=== PATIENT | female | born 1940 | race Caucasian/White ===

== ENCOUNTER → 2018-08-30 | Outpatient (CLI) | payer MEDICARE ==
[~2018-08-30] MED LIST: ACET325 PO; AMIODARONE HCL100 MG PO; AMLO10 PO; AMOCLA875 PO; ATOR80 PO; Adult Low Dose81 MG PO; BENZ100A PO; CEFP200 PO; CHOL10002 PO; CITA20 PO; DIAZ5 PO; DOCU100 PO; FERR325 PO; GABA300 PO; GLIP5ER PO; HYDRA25 PO; LEVSOD137 PO; LEVSOD75 PO; LOSHYD100 PO; METANX CAPSULE1 EACH PO; METO50ER PO; MULTI VITAMIN1 EACH PO; ONDA4 PO; OSTERA TABLET1 EACH PO; OXYC5 PO; PANT20 PO; PANT40 PO; POTA10T PO; PROP10 PO; SUCR1 PO; TORSE20 PO; WARF1 PO; WARF2 PO; WARF5 PO
== END ==
LOC: LAB SHORT 07:52 → PLD 07:52
DX: M79.89 Other specified soft tissue disorders (principal); M20.42 Other hammer toe(s) (acquired), left foot; E11.621 Type 2 diabetes mellitus with foot ulcer; L97.529 Non-pressure chronic ulcer of other part of left foot with unspecified severity
CPT/HCPCS: 88305; 88311

== ENCOUNTER 2018-08-31 19:28 | Emergency (ER) | payer MEDICARE ==
[~2018-08-31] VITALS: Ht 170.2 cm; Wt 65.8 kg
[~2018-08-31 19:28] MED LIST changes: -SUCR1 PO
[2018-08-31 20:42] LABS: BASOPHILS ABSOLUTE AUTO 0.08 K/mm3 (0.00-0.23); BASOPHILS PERCENT AUTO 1 % (0-2); EOSINOPHILS ABSOLUTE AUTO 0.49 K/mm3 (0.00-0.68); EOSINOPHILS PERCENT AUTO 5 % (0-6); Hematocrit 35.7 % (33.0-51.0); Hemoglobin 10.8 g/dL (11.5-16.0); IMMATURE GRAN ABSOLUTE AUTO 0.11 K/mm3 (0.00-0.10); IMMATURE GRAN PERCENT AUTO 1 % (0-1); LYMPHOCYTES PERCENT AUTO 14 % (21-46); MONOCYTES ABSOLUTE AUTO 1.25 K/mm3 (0.16-1.47); MONOCYTES PERCENT AUTO 12 % (4-13); Mean Corpuscular HGB 28.7 pg (26.0-34.0); Mean Corpuscular HGB Conc 30.3 g/dL (31.5-36.5); Mean Corpuscular Volume 95 fL (80-100); Mean Platelet Volume 10.1 fL (9.1-12.4); NEUTROPHILS ABSOLUTE AUTO 6.84 K/mm3 (1.96-9.15); NEUTROPHILS PERCENT AUTO 67 % (41-73); NRBC ABSOLUTE 0.02 K/mm3 (0.00-0.02); NRBC Auto 0.2 /100 WBC (0.0-0.2); Platelet Count 258 K/mm3 (150-400); RDW Coefficient Variation 17.4 % (11.7-14.2); RDW Standard Deviation 58.9 fL (35.1-46.3); Red Blood Cell Count 3.76 M/mm3 (3.80-5.20); White Blood Cell Count 10.17 K/mm3 (4.00-11.30)
[2018-08-31 21:05] LABS: Alanine Aminotransfer (ALT/SGP 25 U/L (12-78); Albumin, Blood 3.3 g/dL (3.4-5.0); Albumin/Globulin Ratio 0.8 (0.8-1.8); Alk Phos 143 U/L (50-136); Anion Gap 9 mmol/L (6-16); Aspartate Aminotrans (AST/SGOT 25 U/L (12-37); Bilirubin, Total 0.4 mg/dL (0.1-1.0); Blood Urea Nitrogen 53 mg/dL (8-24); Bun/Creatinine Ratio 17.8 (12.0-20.0); CO2, Blood 25 mmol/L (21-32); Calcium, Blood 8.4 mg/dL (8.5-10.1); Chloride, Blood 105 mmol/L (98-108); Creatinine, Blood 2.98 mg/dL (0.40-1.00); Globulin, Blood 4.4 g/dL (2.2-4.0); Glomerular Filtration Rate 16 (60-); Glucose, Blood 85 mg/dL (70-99); Potassium, Blood 4.2 mmol/L (3.5-5.5); Sodium, Blood 139 mmol/L (136-145); Total Protein, Blood 7.7 g/dL (6.4-8.2); Troponin I <0.015 ng/mL (0.000-0.040)
[2018-08-31] MEDS ORDERED: SUCR1 PO (22:12)
== END 2018-08-31 22:18 | disposition home or self-care (01) ==
LOC: ER 19:28
PROVIDERS: Physician Assistant
DX: K21.9 Gastro-esophageal reflux disease without esophagitis (principal); Z88.5 Allergy status to narcotic agent; Z88.8 Allergy status to other drugs, medicaments and biological substances; Z88.1 Allergy status to other antibiotic agents; Z79.899 Other long term (current) drug therapy; Z79.01 Long term (current) use of anticoagulants; Z79.82 Long term (current) use of aspirin; I48.91 Unspecified atrial fibrillation; E11.22 Type 2 diabetes mellitus with diabetic chronic kidney disease; N18.9 Chronic kidney disease, unspecified; E03.9 Hypothyroidism, unspecified; E78.5 Hyperlipidemia, unspecified; I50.9 Heart failure, unspecified
CPT/HCPCS: 36415; 71046; 80053; 83880; 84484; 85025; 93005; 93010; 96374; 99284-25; C9113

== ENCOUNTER → 2019-02-07 | Outpatient (CLI) | payer MEDICARE ==
[~2019-02-07] MED LIST changes: +SUCR1 PO
== END | disposition home or self-care (01) ==
LOC: LAB SHORT 12:02 → LAB 12:02
DX: M67.40 Ganglion, unspecified site (principal)
CPT/HCPCS: 87070; 87075; 87205

== ENCOUNTER → 2019-02-16 | Outpatient (CLI) | payer MEDICARE | LOC: PLD 07:36 → LAB SHORT 07:36 | DX: L57.0 Actinic keratosis (principal); L30.9 Dermatitis, unspecified; D04.5 Carcinoma in situ of skin of trunk; R21 Rash and other nonspecific skin eruption | CPT/HCPCS: 88312 ==

== ENCOUNTER → 2019-02-21 | Outpatient (CLI) | payer MEDICARE | END | disposition home or self-care (01) | LOC: LAB SHORT 12:40 → LAB 12:40 | DX: E11.42 Type 2 diabetes mellitus with diabetic polyneuropathy (principal); M67.40 Ganglion, unspecified site | CPT/HCPCS: 87070; 87075; 87205 ==

== ENCOUNTER → 2019-03-14 | Outpatient (CLI) | payer MEDICARE | END | disposition home or self-care (01) | LOC: PLD 08:27 → LAB SHORT 08:27 | DX: M67.472 Ganglion, left ankle and foot (principal) | CPT/HCPCS: 88304 ==

== ENCOUNTER 2020-04-27 10:41 | Inpatient (IN) | payer MEDICARE ==
[~2020-04-27] VITALS: Ht 165.1 cm; Wt 67.0 kg
[~2020-04-27 10:41] MED LIST changes: +ASPIRIN; -Adult Low Dose81 MG PO; -FERR325 PO; +Ferrous Sulfate; +LEVSOD150 PO
[2020-04-27 11:33] LABS: BASOPHILS ABSOLUTE AUTO 0.05 K/mm3 (0.00-0.23); BASOPHILS PERCENT AUTO 1 % (0-2); EOSINOPHILS PERCENT AUTO 3 % (0-6); Hematocrit 28.7 % (33.0-51.0); Hemoglobin 8.5 g/dL (11.5-16.0); IMMATURE GRAN ABSOLUTE AUTO 0.16 K/mm3 (0.00-0.10); IMMATURE GRAN PERCENT AUTO 2 % (0-1); LYMPHOCYTES ABSOLUTE AUTO 1.06 K/mm3 (0.84-5.20); LYMPHOCYTES PERCENT AUTO 10 % (21-46); MONOCYTES ABSOLUTE AUTO 1.08 K/mm3 (0.16-1.47); MONOCYTES PERCENT AUTO 10 % (4-13); Mean Corpuscular HGB 27.9 pg (26.0-34.0); Mean Corpuscular HGB Conc 29.6 g/dL (31.5-36.5); Mean Corpuscular Volume 94 fL (80-100); Mean Platelet Volume 9.8 fL (9.1-12.4); NEUTROPHILS ABSOLUTE AUTO 7.82 K/mm3 (1.96-9.15); NEUTROPHILS PERCENT AUTO 75 % (41-73); Platelet Count 405 K/mm3 (150-400); RDW Coefficient Variation 15.9 % (11.7-14.2); RDW Standard Deviation 56.1 fL (35.1-46.3); Red Blood Cell Count 3.05 M/mm3 (3.80-5.20); White Blood Cell Count 10.47 K/mm3 (4.00-11.30)
[2020-04-27 11:55] LABS: Alanine Aminotransfer (ALT/SGP 25 U/L (12-78); Albumin, Blood 2.7 g/dL (3.4-5.0); Albumin/Globulin Ratio 0.6 (0.8-1.8); Alk Phos 103 U/L (50-136); Anion Gap 11 mmol/L (6-16); Aspartate Aminotrans (AST/SGOT 21 U/L (12-37); Bilirubin, Total 0.4 mg/dL (0.1-1.0); Blood Urea Nitrogen 48 mg/dL (8-24); Bun/Creatinine Ratio 23.9 (12.0-20.0); CO2, Blood 22 mmol/L (21-32); Calcium, Blood 9.3 mg/dL (8.5-10.1); Chloride, Blood 108 mmol/L (98-108); Creatinine, Blood 2.01 mg/dL (0.40-1.00); Globulin, Blood 4.7 g/dL (2.2-4.0); Glomerular Filtration Rate 25 (60-); Glucose, Blood 304 mg/dL (70-99); Potassium, Blood 4.9 mmol/L (3.5-5.5); Sodium, Blood 141 mmol/L (136-145); Total Protein, Blood 7.4 g/dL (6.4-8.2); Troponin I <0.015 ng/mL (0.000-0.040)
[2020-04-27 13:35] LABS: Magnesium, Blood 2.2 mg/dL (1.6-2.4); Thyroid Stimulating Hormone 0.134 uIU/mL (0.360-4.800)
[2020-04-27 14:51] LABS: International Normalized Ratio 2.46
--- NOTE | 2020-04-27 19:30 | NUR ---
REPORT RECEIVED FROM MURALI SPAULDING, ASSUMED CARE OF PT. PT SITTING UP AT BEDSIDE, NO ACUTE DISTRESS. AT BEDSIDE
[2020-04-27] MEDS ORDERED: TORS10 PO (19:57)
[2020-04-27] MEDS ORDERED: GABA300 PO (20:22)
[2020-04-27] MEDS ORDERED: PROCRIT40000 UNIT INJ (20:23)
[2020-04-27] MEDS ORDERED: ALBU90OI6 INH (20:24)
[2020-04-27] MEDS ORDERED: MELATONIN5 M1 (20:25)
[2020-04-27] MEDS ORDERED: DIPH25 PO (20:26)
[2020-04-27] MEDS ORDERED: Aspir 8181 MG PO (20:29)
[2020-04-27] MEDS ORDERED: FERSU300 PO (20:30)
--- NOTE | 2020-04-28 06:02 | NUR ---
SUMMARY PT SLEPT THROUGH MOST OF SHIFT. DENIED ANY CHEST PAIN, DENIED ANY DIFFICULTY BREATHING. O2 @ 2LPM VIA N/C DURING NIGHT. STAND BY ASSIST TO BSC, VOIDING CLEAR YELLOW URINE. WILL CONTINUE TO MONITOR
[2020-04-28 08:57] LABS: Hematocrit 26.7 % (33.0-51.0); Hemoglobin 8.1 g/dL (11.5-16.0); Mean Corpuscular HGB 27.8 pg (26.0-34.0); Mean Corpuscular HGB Conc 30.3 g/dL (31.5-36.5); Mean Corpuscular Volume 92 fL (80-100); Platelet Count 389 K/mm3 (150-400); RDW Coefficient Variation 15.9 % (11.7-14.2); RDW Standard Deviation 53.8 fL (35.1-46.3); Red Blood Cell Count 2.91 M/mm3 (3.80-5.20); White Blood Cell Count 10.04 K/mm3 (4.00-11.30)
[2020-04-28 09:11] LABS: International Normalized Ratio 2.38; Prothrombin Time Results 24.2 Sec (9.7-11.5)
[2020-04-28 09:26] LABS: Percent Saturation 15.9 % (15.0-50.0)
[2020-04-28 10:22] LABS: Thyroid Stimulating Hormone 0.105 uIU/mL (0.360-4.800)
[2020-04-28 10:44] LABS: Bun/Creatinine Ratio 23.4 (12.0-20.0); Calcium, Blood 8.6 mg/dL (8.5-10.1); Creatinine, Blood 1.92 mg/dL (0.40-1.00); Potassium, Blood 4.6 mmol/L (3.5-5.5); Troponin I 0.019 ng/mL (0.000-0.040)
--- NOTE | 2020-04-28 16:51 | NUR ---
PT SUMMARY: PT ALERT AND ORIENTED AT BASELINE, VITALS HRR AFIB 90-100'S, BP SYSTOLIC 120'S, SATS ABOVE 95% ON RA, TEMP 99.2 THE HIGHEST. DENIES CHES PAIN/PRESSURE. PT WORKED WITH PT TODAY WAS ABLE TO AMBULATE VIA WALKER OUTSIDE THE ROOM AND BACK PT STARTED FEELING WEAK AND SOB. NO OTHER ISSUES ENCOUNTERED FOR THE SHIFT, WAS AT BEDSIDE MOST OF THE SHIFT. STATUS CHANGED TO MEDICAL WITH TELE. REPORT GIVEN TO MIGUEL SPAULDING PT TRANSFERRED TO RM 211 VIA WHEELCHAIR ACCOMPANIED BY TEST DATA DEVELOPER. ALL BELONGINGS SENT WITH PT.
--- NOTE | 2020-04-28 17:05 | NUR ---
PT TRANSFERED TO UNIT AT APROX 1706 FROM U[address] TELE IN PLACE-PER TELE MONITOR PT W/ACCELERATED JUNCTIONAL W/ESCAPE BEAT. PT DENIES CP. STATES THAT SHE IS "FEELING STRONGER" EDUCATED PT ON THE NEED TO CALL FOR ASSISTANCE WITH ALL ACTIVITY, PT VERBALIZED UNDERSTANDING.
--- NOTE | 2020-04-29 05:02 | NUR ---
SHIFT SUMMARY PT RESTING WELL THIS NOC SHIFT. AAOX4/ANXIOUS. PT DENIES DISCOMFORT/NAUSEA THIS SHIFT. PT UP SBA TO RESTROOM. GOOD PO INTAKE + OUTPUT. CHEMBG AC+HS, NO COVERAGE FOR HS READING OF 173. TELEMETRY READING A-FLUTTER 90s TO 100s T/O NIGHT. COUMADIN PER PHARMACY. VALIUM GIVEN TO DECREASE ANXIETY + ASSISTED WITH REST. AT BEDSIDE T/O NIGHT, LOVING + ATTENTIVE. PT CURRENTLY RESTING IN BED WITH CALL LIGHT IN REACH.
[2020-04-29 07:32] LABS: International Normalized Ratio 2.64; Prothrombin Time Results 26.7 Sec (9.7-11.5)
[2020-04-29] MEDS ORDERED: AZIT500 PO (11:42)
[2020-04-29] MEDS ORDERED: METO25 PO (11:42)
[2020-04-29] MEDS ORDERED: CEFU500T30 PO (11:43)
--- NOTE | 2020-04-29 12:33 | NUR ---
DISCHARGE PT DISCHARGED HOME FROM UNIT AT 1200. PT AND GIVEN WRITTEN AND VERBAL DC INSTUCTIONS AND BOTH VERBALIZED UNDERSTANDING OF THESE INSTRUCTIONS. NEW RX'S CALLED TO [facility]-PT INFORMED. IV REMOVED, WHEELCHAIR TO CAR
== END 2020-04-29 12:14 | disposition home or self-care (01) | DRG 308 ==
LOC: ER 10:41 → SURS 10:42 → ER 10:42 → PCU 10:42 → SURS 04-28 17:01 → PCU 04-29 07:16 → SURS 04-29 07:16
PROVIDERS: Emergency Medicine; Internal Medicine; ADMIT Internal Medicine
DX: I48.0 Paroxysmal atrial fibrillation (principal); J18.9 Pneumonia, unspecified organism; N18.4 Chronic kidney disease, stage 4 (severe); I50.32 Chronic diastolic (congestive) heart failure; E03.2 Hypothyroidism due to medicaments and other exogenous substances; D63.8 Anemia in other chronic diseases classified elsewhere; F41.9 Anxiety disorder, unspecified; Z20.828 Contact with and (suspected) exposure to other viral communicable diseases; E11.22 Type 2 diabetes mellitus with diabetic chronic kidney disease; Z99.81 Dependence on supplemental oxygen; Z95.2 Presence of prosthetic heart valve; K21.9 Gastro-esophageal reflux disease without esophagitis; E78.5 Hyperlipidemia, unspecified; Z95.1 Presence of aortocoronary bypass graft; E11.40 Type 2 diabetes mellitus with diabetic neuropathy, unspecified; I25.10 Atherosclerotic heart disease of native coronary artery without angina pectoris; I27.20 Pulmonary hypertension, unspecified
CPT/HCPCS: 36415; 71045; 80048; 80053; 82607; 82728; 82746; 82947; 83540; 83550; 83735; 83880; 84145; 84439; 84443; 84484; 85025; 85027; 85379; 85610; 93005; 93010; 97110; 97162; 99285-25; A9270; A9270-GY; G0378; J0696; J7040

== ENCOUNTER 2020-05-25 11:37 | Inpatient (IN) | payer MEDICARE ==
[~2020-05-25] VITALS: Ht 165.1 cm; Wt 65.8 kg
[~2020-05-25 11:37] MED LIST changes: -Amiodarone HCl200 MG PO; -COMBIVENT RESPIM4 G1 INH; -ESCI10 PO; -NEURONTIN300 MG PO; -SYNTHROID150 MC1 PO; -WARF3 PO
[2020-05-25 12:31] LABS: BASOPHILS ABSOLUTE AUTO 0.13 K/mm3 (0.00-0.23); BASOPHILS PERCENT AUTO 1 % (0-2); EOSINOPHILS ABSOLUTE AUTO 1.27 K/mm3 (0.00-0.68); EOSINOPHILS PERCENT AUTO 9 % (0-6); Hematocrit 30.7 % (33.0-51.0); Hemoglobin 8.8 g/dL (11.5-16.0); IMMATURE GRAN ABSOLUTE AUTO 0.18 K/mm3 (0.00-0.10); IMMATURE GRAN PERCENT AUTO 1 % (0-1); LYMPHOCYTES ABSOLUTE AUTO 1.45 K/mm3 (0.84-5.20); LYMPHOCYTES PERCENT AUTO 11 % (21-46); MONOCYTES ABSOLUTE AUTO 1.33 K/mm3 (0.16-1.47); MONOCYTES PERCENT AUTO 10 % (4-13); Mean Corpuscular HGB 27.1 pg (26.0-34.0); Mean Corpuscular HGB Conc 28.7 g/dL (31.5-36.5); Mean Corpuscular Volume 95 fL (80-100); Mean Platelet Volume 9.3 fL (9.1-12.4); NEUTROPHILS ABSOLUTE AUTO 9.43 K/mm3 (1.96-9.15); NEUTROPHILS PERCENT AUTO 69 % (41-73); Platelet Count 564 K/mm3 (150-400); RDW Coefficient Variation 17.6 % (11.7-14.2); RDW Standard Deviation 60.4 fL (35.1-46.3); Red Blood Cell Count 3.25 M/mm3 (3.80-5.20); White Blood Cell Count 13.79 K/mm3 (4.00-11.30)
[2020-05-25 12:47] LABS: Albumin, Blood 2.7 g/dL (3.4-5.0); Albumin/Globulin Ratio 0.6 (0.8-1.8); Bilirubin, Total 0.5 mg/dL (0.1-1.0); Calcium, Blood 10.6 mg/dL (8.5-10.1); Creatinine, Blood 2.09 mg/dL (0.40-1.00); Globulin, Blood 4.6 g/dL (2.2-4.0); Potassium, Blood 3.8 mmol/L (3.5-5.5); Total Protein, Blood 7.3 g/dL (6.4-8.2)
[2020-05-25 13:13] LABS: International Normalized Ratio 4.65; Prothrombin Time Results 45.6 Sec (9.7-11.5)
[2020-05-25] MEDS ORDERED: COMBIVENT RESPIM4 G1 INH (17:47)
[2020-05-25] MEDS ORDERED: Amiodarone HCl200 MG PO (17:48)
[2020-05-25] MEDS ORDERED: NEURONTIN300 MG PO (17:48)
[2020-05-25] MEDS ORDERED: SYNTHROID150 MC1 PO (17:48)
[2020-05-25] MEDS ORDERED: TORSE20 PO (17:49)
[2020-05-25] MEDS ORDERED: GLIP5ER PO (17:49)
[2020-05-25] MEDS ORDERED: WARF3 PO (19:28)
[2020-05-25 20:08] LABS: Adenovirus Not Detected (NOT DETECT); Bordetella pertussis Not Detected (NOT DETECT); Chlamydophila pneumoniae Not Detected (NOT DETECT); Coronavirus 229E Not Detected (NOT DETECT); Coronavirus HKU1 Not Detected (NOT DETECT); Coronavirus NL63 Not Detected (NOT DETECT); Coronavirus OC43 Not Detected (NOT DETECT); Human Metapneumovirus Not Detected (NOT DETECT); Human Rhinovirus/Enterovirus Not Detected (NOT DETECT); Influenza A/2009-H1 Not Detected (NOT DETECT); Influenza A/H1 Not Detected (NOT DETECT); Influenza A/H3 Not Detected (NOT DETECT); Influenza B Not Detected (NOT DETECT); Parainfluenza Virus 1 Not Detected (NOT DETECT); Parainfluenza Virus 2 Not Detected (NOT DETECT); Parainfluenza Virus 3 Not Detected (NOT DETECT); Parainfluenza Virus 4 Not Detected (NOT DETECT); Respiratory Syncytial Virus Not Detected (NOT DETECT); SARS-Cov-2 (COVID-19), BioFire Not Detected (NOT DETECT)
[2020-05-25 20:09] LABS: Mycoplasma pneumoniae Not Detected (NOT DETECT)
[2020-05-25] MEDS ORDERED: ESCI10 PO (21:59)
[2020-05-25] MEDS ORDERED: METO25 PO (22:00)
--- NOTE | 2020-05-26 05:02 | NUR ---
SHEET METAL PATTERN CUTTER SUMMARY PT ADMITTED FROM ED D/T WORSENING PNEUMONIA. PT WITH T/O ADMISSION PROCESS AND DURING THE SHIFT. PT A&OX4, ABLE TO MAKE NEEDS KNOWN. PLEASANT AND COOPERATIVE TO CARE. PT ON 2L O2 VIA NC. LS DIM, SOB WITH EXERTION NOTED. DENIES CP, NO C/O N&V. PT REPORTED CHRONIC NEUROPATHY TO ARNALDO HANDS AND FEET. GIVEN GABAPENTIN HS DOSE. PT CALM AND RESTED IN BED T/O SHIFT. 1P ASSIST. BED AT LOWEST POSITION. CALL LIGHT WITHIN REACH. WILL REPORT TO ONCOMING RN.
[2020-05-26 05:12] LABS: BASOPHILS ABSOLUTE AUTO 0.12 K/mm3 (0.00-0.23); BASOPHILS PERCENT AUTO 1 % (0-2); EOSINOPHILS ABSOLUTE AUTO 1.13 K/mm3 (0.00-0.68); EOSINOPHILS PERCENT AUTO 8 % (0-6); Hematocrit 31.8 % (33.0-51.0); Hemoglobin 9.2 g/dL (11.5-16.0); IMMATURE GRAN ABSOLUTE AUTO 0.17 K/mm3 (0.00-0.10); IMMATURE GRAN PERCENT AUTO 1 % (0-1); LYMPHOCYTES PERCENT AUTO 11 % (21-46); MONOCYTES ABSOLUTE AUTO 1.26 K/mm3 (0.16-1.47); MONOCYTES PERCENT AUTO 9 % (4-13); Mean Corpuscular HGB 26.8 pg (26.0-34.0); Mean Corpuscular HGB Conc 28.9 g/dL (31.5-36.5); Mean Corpuscular Volume 93 fL (80-100); Mean Platelet Volume 9.5 fL (9.1-12.4); NEUTROPHILS ABSOLUTE AUTO 9.93 K/mm3 (1.96-9.15); NEUTROPHILS PERCENT AUTO 70 % (41-73); Platelet Count 435 K/mm3 (150-400); RDW Coefficient Variation 17.6 % (11.7-14.2); RDW Standard Deviation 58.5 fL (35.1-46.3); Red Blood Cell Count 3.43 M/mm3 (3.80-5.20); White Blood Cell Count 14.11 K/mm3 (4.00-11.30)
[2020-05-26 05:38] LABS: Anion Gap 8 mmol/L (6-16); Blood Urea Nitrogen 40 mg/dL (8-24); Bun/Creatinine Ratio 21.4 (12.0-20.0); CO2, Blood 29 mmol/L (21-32); Calcium, Blood 9.9 mg/dL (8.5-10.1); Chloride, Blood 104 mmol/L (98-108); Creatinine, Blood 1.87 mg/dL (0.40-1.00); Glomerular Filtration Rate 28 (60-); Glucose, Blood 124 mg/dL (70-99); Sodium, Blood 141 mmol/L (136-145); Vancomycin, Random 16.3 ug/mL
[2020-05-26 05:53] LABS: Prothrombin Time Results 44.6 Sec (9.7-11.5)
[2020-05-26 05:54] LABS: International Normalized Ratio 4.54
--- NOTE | 2020-05-26 17:59 | NUR ---
SHIFT SUMMARY PATIENT DENIES PAIN, NAUSEA, AND SHORTNESS OF BREATH. PATIENT UP SBA TO BSC. UP IN CHAIR FOR MEALS. PATIENT WEANED TO 1L/NC TODAY. DR. GOMES CONSULTED ON PATIEN TODAY. PATIENT NPO AT MIDNIGHT FOR BRONCHOSCOPY TOMORROW MORNING.
--- NOTE | 2020-05-27 04:14 | NUR ---
SHIFT SUMMARY NO ACUTE CHANGES TO REPORT THIS SHIFT. PT HAS RESTED MOST OF THE NIGHT. MEDICATED X1 FOR GOLDEN WITH EFFECT. PT DOES WELL ON 1L O2, SOB ONLY WITH EXERTION. LUNGS WITH CRACKLES TO BASES. PLAN IS FOR BRONCHOSCOPY TODAY. NPO SINCE MIDNIGHT. ASSESSMENT UNCHANGED. BED IN LOWEST POSITION, CALL LIGHT WITHIN REACH.
[2020-05-27 05:14] LABS: BASOPHILS PERCENT AUTO 1 % (0-2); EOSINOPHILS ABSOLUTE AUTO 1.23 K/mm3 (0.00-0.68); EOSINOPHILS PERCENT AUTO 11 % (0-6); Hematocrit 28.1 % (33.0-51.0); Hemoglobin 7.9 g/dL (11.5-16.0); IMMATURE GRAN PERCENT AUTO 2 % (0-1); LYMPHOCYTES ABSOLUTE AUTO 1.82 K/mm3 (0.84-5.20); LYMPHOCYTES PERCENT AUTO 16 % (21-46); MONOCYTES ABSOLUTE AUTO 1.33 K/mm3 (0.16-1.47); MONOCYTES PERCENT AUTO 12 % (4-13); Mean Corpuscular HGB 26.8 pg (26.0-34.0); Mean Corpuscular HGB Conc 28.1 g/dL (31.5-36.5); Mean Corpuscular Volume 95 fL (80-100); Mean Platelet Volume 9.7 fL (9.1-12.4); NEUTROPHILS ABSOLUTE AUTO 6.93 K/mm3 (1.96-9.15); NEUTROPHILS PERCENT AUTO 60 % (41-73); Platelet Count 390 K/mm3 (150-400); RDW Coefficient Variation 17.4 % (11.7-14.2); RDW Standard Deviation 60.1 fL (35.1-46.3); Red Blood Cell Count 2.95 M/mm3 (3.80-5.20); White Blood Cell Count 11.61 K/mm3 (4.00-11.30)
[2020-05-27 05:43] LABS: Prothrombin Time Results 43.5 Sec (9.7-11.5)
[2020-05-27 05:44] LABS: International Normalized Ratio 4.42
[2020-05-27 05:54] LABS: Anion Gap 7 mmol/L (6-16); Blood Urea Nitrogen 41 mg/dL (8-24); Bun/Creatinine Ratio 20.4 (12.0-20.0); CO2, Blood 30 mmol/L (21-32); Calcium, Blood 9.8 mg/dL (8.5-10.1); Chloride, Blood 101 mmol/L (98-108); Creatinine, Blood 2.01 mg/dL (0.40-1.00); Glomerular Filtration Rate 25 (60-); Glucose, Blood 125 mg/dL (70-99); Potassium, Blood 3.7 mmol/L (3.5-5.5); Sodium, Blood 138 mmol/L (136-145); Vancomycin, Random 15.9 ug/mL
--- NOTE | 2020-05-27 11:10 | NUR ---
PT TRANSFERED TO [facility]IA [facility] FROM [facility]. History, Chart, Medications and Allergies reviewed before start of procedure. Lungs clear T/O to Auscultation. Patient confirms NPO status and agrees with scheduled surgery. Pre-Op teaching done. Pt verbalizes understanding.
--- NOTE | 2020-05-27 11:54 | NUR ---
05/27/20 1154 JEANIE LEA History, Chart, Medications and Allergies reviewed before start of procedure. 3-LEAD EKG REVIEWED WITH PHYSICIAN PRIOR TO START OF PROCEDURE. MONITOR INTACT WITH CONTINUOUS PULSE OXIMETRY AND INTERMITTENT BP. O2 VIA N/C INTACT THROUGHOUT SEDATION/PROCEDURE. PATIENT DETERMINED TO BE ASA APPROPRIATE FOR PROPOFOL SEDATION PRIOR TO START OF PROCEDURE BY DR. HURTADO.
--- NOTE | 2020-05-27 17:51 | NUR ---
SHIFT SUMMARY PATIENT MEDICATED X1 FOR HEADACHE THIS EVENING, DENIES NAUSEA AND SHORTNESS OF BREATH. UP SBA TO BR. MAINTAINING OXYGEN SATURATION ABOVE 92% ON 1L/NC. BRONSCHOSCOPY COMPLETED TODAY. UP IN CHAIR FOR MEALS AND SHORT WALKS IN CHEW.
--- NOTE | 2020-05-28 03:54 | NUR ---
SHIFT SUMMARY NO ACUTE CHANGES TO REPORT THIS SHIFT. PT HAS RESTED MOST OF THE NIGHT. MEDICATED WITH ULTRAM X1 FOR NERVE PAIN WITH EFFECT. PT HAS COUGH BUT IT REMAINS UNPRODUCTIVE POST BRONCHOSCOPY. INDEPEDENT IN ROOM MOSTLY. VITALS ARE STABLE. LUNGS ARE DIM T/O, 1L O2 IN PLACE. NO ACUTE CHANGES OVERNIGHT. BED IN LOWEST POSITION, CALL LIGHT WITHIN, REACH.
[2020-05-28 04:53] LABS: BASOPHILS ABSOLUTE AUTO 0.14 K/mm3 (0.00-0.23); BASOPHILS PERCENT AUTO 1 % (0-2); EOSINOPHILS ABSOLUTE AUTO 1.16 K/mm3 (0.00-0.68); EOSINOPHILS PERCENT AUTO 10 % (0-6); Hematocrit 27.7 % (33.0-51.0); Hemoglobin 8.1 g/dL (11.5-16.0); IMMATURE GRAN ABSOLUTE AUTO 0.21 K/mm3 (0.00-0.10); IMMATURE GRAN PERCENT AUTO 2 % (0-1); LYMPHOCYTES ABSOLUTE AUTO 1.76 K/mm3 (0.84-5.20); LYMPHOCYTES PERCENT AUTO 15 % (21-46); MONOCYTES ABSOLUTE AUTO 1.27 K/mm3 (0.16-1.47); MONOCYTES PERCENT AUTO 11 % (4-13); Mean Corpuscular HGB 27.4 pg (26.0-34.0); Mean Corpuscular HGB Conc 29.2 g/dL (31.5-36.5); Mean Corpuscular Volume 94 fL (80-100); Mean Platelet Volume 9.5 fL (9.1-12.4); NEUTROPHILS ABSOLUTE AUTO 7.55 K/mm3 (1.96-9.15); NEUTROPHILS PERCENT AUTO 62 % (41-73); NRBC ABSOLUTE 0.02 K/mm3 (0.00-0.02); NRBC Auto 0.2 /100 WBC (0.0-0.2); Platelet Count 423 K/mm3 (150-400); RDW Coefficient Variation 17.3 % (11.7-14.2); RDW Standard Deviation 57.9 fL (35.1-46.3); Red Blood Cell Count 2.96 M/mm3 (3.80-5.20); White Blood Cell Count 12.09 K/mm3 (4.00-11.30)
[2020-05-28 05:07] LABS: International Normalized Ratio 3.52; Prothrombin Time Results 35.1 Sec (9.7-11.5)
[2020-05-28 05:28] LABS: Percent Saturation 18.7 % (15.0-50.0)
[2020-05-28 06:08] LABS: Anion Gap 6 mmol/L (6-16); Blood Urea Nitrogen 47 mg/dL (8-24); Bun/Creatinine Ratio 20.7 (12.0-20.0); CO2, Blood 31 mmol/L (21-32); Calcium, Blood 9.7 mg/dL (8.5-10.1); Chloride, Blood 102 mmol/L (98-108); Creatinine, Blood 2.27 mg/dL (0.40-1.00); Glomerular Filtration Rate 22 (60-); Glucose, Blood 133 mg/dL (70-99); Potassium, Blood 3.7 mmol/L (3.5-5.5); Sodium, Blood 139 mmol/L (136-145); Vancomycin, Random 19.7 ug/mL
--- NOTE | 2020-05-28 07:20 | NUR ---
PERMISSION FOR CARE BOZENA PATTON, STUDENT NURSE, RECEIVED PERMISSION FROM THIS PATIENT TO PROVIDE CARE FOR HER ON 05/28/2020.
[2020-05-28] MEDS ORDERED: ACET325 PO (11:18)
--- NOTE | 2020-05-28 13:31 | NUR ---
CALLED [facility] IN [facility]. FOR COUMADIN CLINIC. PER [facility] PT NOT TO TAKE COUMADIN TONIGHT 1MG DOSE SHOULD BE TAKEN THURSDAY AND THURSDAY THEN THE PT SHOULD HAVE LABS DONE ON THURSDAY MORNING. PASSED THIS ON TO THE PT AND WILL ADD IT TO THE DISCHARGE INSTRUCTIONS.
[2020-05-28 15:08] LABS: Performing Lab SYMBIODX; Test Name FLOW BRONC
--- NOTE | 2020-05-28 15:18 | NUR ---
DISCHARGE NOTE- PT WAS GIVEN VERBAL AND WRITTEN DISCHARGE INSTRUCTIONS AND ACKNOWLEDGED UNDERSTANING OF THEM. PT IS FORGETFUL SO WAS PRESENT FOR DISCHARGE TEACHING AND HE ALSO ACKNOWLEDGED UNDERSTANDING OF THE INSTRUCTIONS. IV DC'D PRIOR TO DISCHARGE. PT ON 2L CONT OX. PT ESCORTED OUT VIA WC BY THE HYDRO PLANT OPERATOR. NO S&S OF DISTRESS NOTED.
[2020-06-18 09:31] LABS: Result SEE PATHOTH RESULTS
== END 2020-05-28 14:29 | disposition home health service (06) | DRG 194 ==
LOC: ER 11:37 → MEDS 11:38 → ENPENDDIS 05-28 14:08 → MEDS 05-28 14:29
PROVIDERS: Internal Medicine; Internal Medicine Critical Care Medicine; Nurse Practitioner Acute Care; Physician Assistant; ADMIT Internal Medicine
PROC: 0B9H8ZX Drainage of Lung Lingula, Via Natural or Artificial Opening Endoscopic, Diagnostic (ICD-10-PCS; principal; 2020-05-27 11:00)
DX: J18.9 Pneumonia, unspecified organism (principal); J47.0 Bronchiectasis with acute lower respiratory infection; N18.4 Chronic kidney disease, stage 4 (severe); I50.32 Chronic diastolic (congestive) heart failure; J96.11 Chronic respiratory failure with hypoxia; I13.0 Hypertensive heart and chronic kidney disease with heart failure and stage 1 through stage 4 chronic kidney disease, or unspecified chronic kidney disease; Z99.3 Dependence on wheelchair; Z20.828 Contact with and (suspected) exposure to other viral communicable diseases; I34.1 Nonrheumatic mitral (valve) prolapse; E78.5 Hyperlipidemia, unspecified; E03.9 Hypothyroidism, unspecified; Z95.1 Presence of aortocoronary bypass graft; E11.22 Type 2 diabetes mellitus with diabetic chronic kidney disease; D63.1 Anemia in chronic kidney disease; I48.91 Unspecified atrial fibrillation; Z79.84 Long term (current) use of oral hypoglycemic drugs; Z79.01 Long term (current) use of anticoagulants
CPT/HCPCS: 0202U; 36415; 80048; 80053; 80202; 82607; 82728; 82746; 82947; 83540; 83550; 83605; 85025; 85610; 85730; 87015; 87040; 87070; 87205; 88108; 88184; 88185; 88312; 93005; 93010; 94667; 94668; 94760; 94761; 96365; 97110; 97161; 99285-25; A9270; A9270-GY; J0692; J2704; J3370; J7120

== ENCOUNTER → 2020-05-25 | Outpatient (CLI) | payer MEDICARE ==
[~2020-05-25] MED LIST changes: +ALBU90OI6 INH; +AZIT500 PO; +Amiodarone HCl200 MG PO; +Aspir 8181 MG PO; +CEFU500T30 PO; -CHOL10002 PO; +COMBIVENT RESPIM4 G1 INH; +DIPH25 PO; +ESCI10 PO; +FERSU300 PO; +MELATONIN5 M1; +METO25 PO; +NEURONTIN300 MG PO; +PROCRIT40000 UNIT INJ; +SYNTHROID150 MC1 PO; +TORS10 PO; +VITAMIN D31000 UNI1 PO; +WARF3 PO
[2020-05-29 12:00] LABS: M-SPIKE, % Not Observed % (Not Observed)
== END | disposition home or self-care (01) ==
LOC: LAB 11:10 → LAB SHORT 11:10 → LAB FUT 05-24 16:15
PROVIDERS: Internal Medicine Nephrology
DX: N18.30 Chronic kidney disease, stage 3 unspecified (principal); D63.1 Anemia in chronic kidney disease; R76.9 Abnormal immunological finding in serum, unspecified; R94.6 Abnormal results of thyroid function studies; R94.5 Abnormal results of liver function studies; N25.81 Secondary hyperparathyroidism of renal origin; E55.9 Vitamin D deficiency, unspecified
CPT/HCPCS: 84156; 84166

== ENCOUNTER 2020-09-06 10:41 | Day surgery (SDC) | payer MEDICARE ==
[~2020-09-06] VITALS: Ht 165.1 cm; Wt 131.0 kg
[~2020-09-06 10:41] MED LIST changes: +Amiodarone HCl200 MG PO; +COMBIVENT RESPIM4 G1 INH; +ESCI10 PO; +NEURONTIN300 MG PO; +SYNTHROID150 MC1 PO; +WARF3 PO
[2020-09-06] MEDS ORDERED: Voltaren100 GM (12:02)
--- NOTE | 2020-09-06 14:45 | NUR ---
PT TO RECOVERY ROOM POST PROCEDURE. PT AWAKE AND CONVERSING APPROPRIATELY; DENIES PAIN POST PROCEDURE. MONITOR SR WITH 1ST DEGREE 70-80'S, B/P 140/65, AFEBRILE, SPO2 94% RA. R CHEST PERMCATH SITE NO SWELLING/HEMATOMA, GAUZE AND TAPE DRSG INTACT. PT SITTING UP AND EATING LUNCH WITHOUT ISSUE.
--- NOTE | 2020-09-06 16:00 | NUR ---
PT AMB TO BATHROOM WITHOUT ISSUE, PERMCATH SITE UNCHANGED. PT DRESSED SELF WITHOUT ISSUE, IV REMOVED-CANNULA INTACT.
--- NOTE | 2020-09-06 16:09 | NUR ---
PT RECEIVED DISCHARGE INSTRUCTIONS, MED LIST AND AFTER CARE INSTRUCTIONS; VERBALIZED GOOD UNDERSTANDING. PT LEFT FACILITY VIA W/C, CONDITION STABLE.
== END 2020-09-06 16:09 | disposition home or self-care (01) ==
LOC: MHTC 10:41
DX: N18.6 End stage renal disease (principal); Z95.1 Presence of aortocoronary bypass graft; Z95.5 Presence of coronary angioplasty implant and graft; Z88.5 Allergy status to narcotic agent; Z88.8 Allergy status to other drugs, medicaments and biological substances; Z79.01 Long term (current) use of anticoagulants
CPT/HCPCS: 36558; 76937; 77001; 99152; 99153; C1750; C1769; C1894; J1644; J2250; J3010; J7030; J7040; Q9967

== ENCOUNTER 2020-11-29 08:37 | Day surgery (SDC) | payer MEDICARE ==
[~2020-11-29] VITALS: Ht 165.1 cm; Wt 64.0 kg
[~2020-11-29 08:37] MED LIST changes: +Voltaren100 GM
[2020-11-29 09:32] LABS: International Normalized Ratio 2.87; Prothrombin Time Results 29.2 Sec (9.7-11.5)
--- NOTE | 2020-11-29 09:45 | NUR ---
INR RESULTS BACK, REPORTED TO DR. DEAN. HE IS CURRENTLY IN A PROCEDURE AND WILL COME TALK TO THE PATIENT ABOUT RESCHEDULING FOR NEXT WEEK OR SO.
--- NOTE | 2020-11-29 10:27 | NUR ---
DR. DEAN AT THE BEDSIDE AT 1000. PATIENT WILL BE RESCHEDULED FOR NEXT WEEK, SCHEDULING PERMITTED. PATIENT INSTRUCTED TO STOP COUMADIN FOUR DAYS PRIOR TO PROCEDURE SO inr WILL BE AT A SAFE LEVEL TO DO PROCEDURE. MESSAGE LEFT AT OFFICE WITH VIELKA AND INSTRUCTIONS GIVEN TO THE PAITENT. PIV REMOVED AND PATIENT DRESSED SELF. ALL BELONGINGS GATHERED AND PAITENT WHELLCHAIRED TO THE [facility]. ELIGIO WAS NOTIFIED AND CAN STILL GET PATIENT INTO DIALYSIS AT 1130. PATIENT INSTRUCTED TO GO TO DIALYSIS FOR TREATMENT TODAY. PATIENT AND VERBLAIZED INDERSTANDING OF INSTRUCTIONS AND REASON FOR RESCHEUDLING.
== END 2020-11-29 10:51 | disposition home or self-care (01) ==
LOC: MHTC 08:37
PROVIDERS: Radiology Diagnostic Radiology
DX: N18.6 End stage renal disease (principal)
CPT/HCPCS: 85610

== ENCOUNTER 2020-12-19 06:01 | Day surgery (SDC) | payer MEDICARE ==
[~2020-12-19] VITALS: Ht 182.9 cm; Wt 64.0 kg
--- NOTE | 2020-12-19 11:17 | NUR ---
PT ATE LATE BREAKFAST. UP AND DRESSED. DRESSING IN PLACE C/D/I. DISCHARGE GONE OVER WITH PT, VERBALIZES UNDERSTANDING. PT TO PRIVATE VEHICLE PER W/C WITH DISCHARGE VOLUNTEER.
== END 2020-12-19 11:15 | disposition home or self-care (01) ==
LOC: MHTC 06:01
DX: I70.213 Atherosclerosis of native arteries of extremities with intermittent claudication, bilateral legs (principal); N18.6 End stage renal disease; K21.9 Gastro-esophageal reflux disease without esophagitis; J44.9 Chronic obstructive pulmonary disease, unspecified; Z95.1 Presence of aortocoronary bypass graft; Z88.1 Allergy status to other antibiotic agents; Z88.5 Allergy status to narcotic agent; Z88.8 Allergy status to other drugs, medicaments and biological substances; Z79.01 Long term (current) use of anticoagulants; Z79.84 Long term (current) use of oral hypoglycemic drugs; Z79.899 Other long term (current) drug therapy
CPT/HCPCS: 49418; 76937; 82947; 99152; 99153; C1750; C1769; C1894; J0690; J1644; J2250; J3010; J7030; J7040; Q9967

== ENCOUNTER → 2021-04-16 | Outpatient (CLI) | payer MEDICARE ==
[~2021-04-16] MED LIST changes: +SYNTHROID125 MC1 PO
== END | disposition home or self-care (01) ==
LOC: LAB SHORT 08:52
DX: E11.42 Type 2 diabetes mellitus with diabetic polyneuropathy (principal); E11.51 Type 2 diabetes mellitus with diabetic peripheral angiopathy without gangrene; E11.69 Type 2 diabetes mellitus with other specified complication; I70.213 Atherosclerosis of native arteries of extremities with intermittent claudication, bilateral legs; M86.9 Osteomyelitis, unspecified; L08.9 Local infection of the skin and subcutaneous tissue, unspecified; Z89.421 Acquired absence of other right toe(s)
CPT/HCPCS: 88108; 88305; 88311

== ENCOUNTER 2021-04-23 10:57 | Inpatient (IN) | payer MEDICARE ==
[~2021-04-23] VITALS: Ht 165.1 cm; Wt 65.9 kg
[~2021-04-23 10:57] MED LIST changes: -SYNTHROID125 MC1 PO
[2021-04-23 11:57] LABS: BASOPHILS ABSOLUTE AUTO 0.07 K/mm3 (0.00-0.23); BASOPHILS PERCENT AUTO 0 % (0-2); EOSINOPHILS ABSOLUTE AUTO 0.35 K/mm3 (0.00-0.68); EOSINOPHILS PERCENT AUTO 2 % (0-6); Hematocrit 25.1 % (33.0-51.0); Hemoglobin 7.8 g/dL (11.5-16.0); IMMATURE GRAN ABSOLUTE AUTO 0.22 K/mm3 (0.00-0.10); IMMATURE GRAN PERCENT AUTO 1 % (0-1); LYMPHOCYTES ABSOLUTE AUTO 1.69 K/mm3 (0.84-5.20); LYMPHOCYTES PERCENT AUTO 10 % (21-46); MONOCYTES ABSOLUTE AUTO 1.85 K/mm3 (0.16-1.47); MONOCYTES PERCENT AUTO 10 % (4-13); Mean Corpuscular HGB 29.3 pg (26.0-34.0); Mean Corpuscular HGB Conc 31.1 g/dL (31.5-36.5); Mean Corpuscular Volume 94 fL (80-100); Mean Platelet Volume 9.5 fL (9.1-12.4); NEUTROPHILS ABSOLUTE AUTO 13.68 K/mm3 (1.96-9.15); NEUTROPHILS PERCENT AUTO 77 % (41-73); Platelet Count 357 K/mm3 (150-400); RDW Coefficient Variation 15.2 % (11.7-14.2); RDW Standard Deviation 52.5 fL (35.1-46.3); Red Blood Cell Count 2.66 M/mm3 (3.80-5.20); White Blood Cell Count 17.86 K/mm3 (4.00-11.30)
[2021-04-23 12:18] LABS: Albumin, Blood 2.2 g/dL (3.4-5.0); Albumin/Globulin Ratio 0.4 (0.8-1.8); Bilirubin, Total 0.7 mg/dL (0.1-1.0); Bun/Creatinine Ratio 11.5 (12.0-20.0); Calcium, Blood 8.4 mg/dL (8.5-10.1); Creatinine, Blood 6.25 mg/dL (0.40-1.00); Globulin, Blood 5.3 g/dL (2.2-4.0); Potassium, Blood 3.6 mmol/L (3.5-5.5); Total Protein, Blood 7.5 g/dL (6.4-8.2)
[2021-04-23 14:12] LABS: Prothrombin Time Results >90.0 Sec (9.7-11.5)
[2021-04-23 14:14] LABS: International Normalized Ratio >10.00
[2021-04-23] MEDS ORDERED: SYNTHROID125 MC1 PO (14:49)
[2021-04-23] MEDS ORDERED: TORSE20 PO (14:49)
[2021-04-23] MEDS ORDERED: METO50ER PO (14:50)
[2021-04-23] MEDS ORDERED: WARF3 PO (14:54)
[2021-04-23 17:02] LABS: SARS-Cov-2 (COVID-19) PCR, MMC NEGATIVE (NEGATIVE)
[2021-04-23 17:42] LABS: Source, Urine Catheter
[2021-04-23 18:12] LABS: Appearance, Urine Cloudy (Clear); Bilirubin, Urine Neg (Neg); Blood, Urine 5+ (Neg); Color, Urine Yellow (P-Yellow); Glucose Qualitative, Urine Neg (Neg); Ketones, Urine Neg (Neg); Leukocyte Esterase, Urine 3+ (Neg); Nitrite, Urine Neg (Neg); Protein, Urine 2+ (Neg); Urobilinogen, Urine NORM (Normal)
[2021-04-23 18:56] LABS: White Blood Cells, Urine 25-50 /hpf (0-5)
[2021-04-23 18:57] LABS: Amorphous Light (0-Heavy); Bacteria Many /hpf; Granular Casts 0-2 /lpf (0); Squamous Epithelial Cells Mod /hpf (Few)
--- NOTE | 2021-04-24 01:47 | NUR ---
RIGHT FOOT WITH DOPPLER PEDAL PULSE, PT STATES SHE HAS SIGNIFICANT NEUROPATHY BILAT LOWER EXTREMITIES AND HAS NO PAIN FROM WOUNDS. CHELLY CARVALHO
[2021-04-24 04:06] LABS: BASOPHILS ABSOLUTE AUTO 0.06 K/mm3 (0.00-0.23); BASOPHILS PERCENT AUTO 0 % (0-2); EOSINOPHILS ABSOLUTE AUTO 0.04 K/mm3 (0.00-0.68); EOSINOPHILS PERCENT AUTO 0 % (0-6); IMMATURE GRAN ABSOLUTE AUTO 0.26 K/mm3 (0.00-0.10); IMMATURE GRAN PERCENT AUTO 1 % (0-1); LYMPHOCYTES ABSOLUTE AUTO 0.96 K/mm3 (0.84-5.20); LYMPHOCYTES PERCENT AUTO 5 % (21-46); MONOCYTES ABSOLUTE AUTO 1.42 K/mm3 (0.16-1.47); MONOCYTES PERCENT AUTO 8 % (4-13); Mean Corpuscular HGB Conc 31.8 g/dL (31.5-36.5); Mean Corpuscular Volume 94 fL (80-100); Mean Platelet Volume 9.5 fL (9.1-12.4); NEUTROPHILS ABSOLUTE AUTO 15.56 K/mm3 (1.96-9.15); NEUTROPHILS PERCENT AUTO 85 % (41-73); Platelet Count 240 K/mm3 (150-400); RDW Coefficient Variation 15.2 % (11.7-14.2); RDW Standard Deviation 52.7 fL (35.1-46.3); Red Blood Cell Count 2.33 M/mm3 (3.80-5.20)
[2021-04-24 04:19] LABS: International Normalized Ratio 3.17; Prothrombin Time Results 30.9 Sec (9.7-11.5)
[2021-04-24 04:24] LABS: Alanine Aminotransfer (ALT/SGP 17 U/L (12-78); Albumin, Blood 2.1 g/dL (3.4-5.0); Albumin/Globulin Ratio 0.5 (0.8-1.8); Alk Phos 143 U/L (50-136); Anion Gap 13 mmol/L (6-16); Aspartate Aminotrans (AST/SGOT 23 U/L (12-37); Bilirubin, Total 0.9 mg/dL (0.1-1.0); Blood Urea Nitrogen 76 mg/dL (8-24); Bun/Creatinine Ratio 12.6 (12.0-20.0); CO2, Blood 23 mmol/L (21-32); Calcium, Blood 7.9 mg/dL (8.5-10.1); Chloride, Blood 99 mmol/L (98-108); Creatinine, Blood 6.05 mg/dL (0.40-1.00); Globulin, Blood 4.5 g/dL (2.2-4.0); Glomerular Filtration Rate 7 (60-); Glucose, Blood 198 mg/dL (70-99); Potassium, Blood 3.6 mmol/L (3.5-5.5); Sodium, Blood 135 mmol/L (136-145); Total Protein, Blood 6.6 g/dL (6.4-8.2); Vancomycin, Random 20.4 ug/mL
--- NOTE | 2021-04-24 04:42 | NUR ---
call to dr pearce re: dropping h&h. per , repeat h&h 6 hours after PRBC's completed. CHELLY Sinha
--- NOTE | 2021-04-24 06:35 | NUR ---
ADMITTED FROM ER VIA STRETCHER, ORIENTED TO ROOM AND CALL CHICAS SYSTEM, PT FLIPPING BETWEEN ST AND AFIB, VSS, CLL CHICAS IN REACH, BED IN LOW POSITION, PT ABLE TO VERBALIZE NEEDS.
[2021-04-24 11:15] LABS: Hematocrit 28.1 % (33.0-51.0); Hemoglobin 8.6 g/dL (11.5-16.0)
[2021-04-24 12:12] LABS: Automated BF RBC Count 0.002 M/mm3 (0-0); Body Fluid WBC Count 230 /mm3 (0-999)
[2021-04-24 12:56] LABS: Appearance, Body Fluid Hazy (Clear); Color, Body Fluid L Yellow (None-Yellow); Total Cell Count, Body Fluid 100
--- NOTE | 2021-04-24 13:22 | NUR ---
RIGHT FOOT WARM BUT PEDAL PULSE NOT PALPABLE. DR. DEAN NOTIFIED BY DR. KAUFFMAN FOR CONSULT.
--- NOTE | 2021-04-24 17:42 | NUR ---
SHIFT SUMMARY; ASSUMED CARE AT 0700. A/A/OX4. VSS THROUGHOUT SHIFT WITH SINUS TACH 90-115. O2 TITRATED DOWN TO 2L WITH SATS MAINTAING 95%. RIGHT FOOT DRESSING CHANGED, RIGHT SECOND TOE BLACK, FOOT WARM WITH CAP REFILL 4 SEC. RIGHT PEDAL PULSE NOT PALPABLE, DR. MUSE EVALUATED, DR. DEAN NOTFIED AND WILL EVALUATE IN AM. SKIN TEAR TO BACK OF LEFT CALF WITH STERI STRIPS AND DRESSING. BRUISING SCATTERED T/O. REPOSITIONS SELF IN BED, SBA TO BEDSIDE COMMODE. SAT IN RECLINER FOR SEVERAL HOURS DURING SHIFT. WILL CONTINUE TO MONITOR AND TREAT UNTIL CHANGE OF SHIFT.
--- NOTE | 2021-04-24 19:40 | NUR ---
TO PCU 2 FOR EVENING PD TX. PT SLEEPING IN BED, SLIGHTLY CONFUSED. PD TX STARTED UNDER ASEPTIC TECHNIQUE PER DR CALLE ORDERS. SITE CLEAR, TOLERATED WELL. MATTY AGUDELO RN
--- NOTE | 2021-04-24 22:00 | NUR ---
CALL PLACED TO DR LOERA RE: PT C/O SOB WITH CRACKLES NOTED BILAT ON ASSESSMENT, DECREASED RESP TOLERANCE FOR ACTIVIY AND DECREASED SAT ON HOME 02 SETTINGS OF 2L. PT ALSO UP MULTIPLE TIMES WITH ASSIST TO VOID, ONLY ABLE TO VOID SMALL AMOUNTS AT A TIME. POST VOID RESIDUAL VIA BLADDER SCAN SHOWS 600ML. ORDERS REC'D AND NOTED, HOLDING IV FLUIDS FOR NOW PER MD VERBAL ORDER, O2 TITRATED DOWN TO 3L, WILL SATS >95% AT REST. DOES DESAT WITH ACTIVITY. #18 FR Luis CATH INSERTED WITHOUT DIFFICULTY FOR IMMEDIATE RETURN OF CLEAR YELLOW URINE. WILL CONTINUE TO MONITOR.
--- NOTE | 2021-04-25 00:11 | NUR ---
PT VERY ANXIOUS EARLY IN SHIFT, EXEPRIENCING URINARY FREQUENCY AND SOB WITH MINIMAL EXERTION. HR >120 AFIB, MEDICATED WITH IV METOPROLOL PER ORDER, MERCADO INSERTED DUE TO RETENTION AND PT ABLE TO REST, HR AND RR BACK WNL AFTER ABOVE. HOLDING FLUIDS PT DOES HAVE CRACKLES THROUGHOUT, MD AWARE. MAINTAIN NPO STATUS AFTER MIDNIGHT, WILL CONTINUE TO MONITOR. VSS,
--- NOTE | 2021-04-25 03:35 | NUR ---
REDRESSED RIGHT FOOT W/ DSD/CECILIA WRAP. CHELLY CARVALHO
--- NOTE | 2021-04-25 04:08 | NUR ---
PT C/O ABD DISTENTION AND DISCOMFIRT DURING PD. NO KINKS NOTED IN TUBING TO AND FROM PT TO PD MACHINE. CALL PLACED TO PD RNISAC, PER HER INSTRUCTIONS, PD TURNED OFF COMPLETELY. WILL CONTINUE TO MONITOR. CHELLY CARVALHO
[2021-04-25 04:14] LABS: Hematocrit 24.5 % (33.0-51.0); Hemoglobin 7.8 g/dL (11.5-16.0)
[2021-04-25 04:32] LABS: International Normalized Ratio 1.85; Prothrombin Time Results 18.7 Sec (9.7-11.5)
[2021-04-25 04:42] LABS: Albumin, Blood 2.1 g/dL (3.4-5.0); Anion Gap 13 mmol/L (6-16); Blood Urea Nitrogen 73 mg/dL (8-24); CO2, Blood 24 mmol/L (21-32); Calcium, Blood 8.3 mg/dL (8.5-10.1); Chloride, Blood 100 mmol/L (98-108); Creatinine, Blood 5.22 mg/dL (0.40-1.00); Glomerular Filtration Rate 8 (60-); Glucose, Blood 239 mg/dL (70-99); Magnesium, Blood 2.4 mg/dL (1.6-2.4); Phosphorus, Blood 5.2 mg/dL (2.5-4.9); Potassium, Blood 3.1 mmol/L (3.5-5.5); Sodium, Blood 137 mmol/L (136-145); Vancomycin, Random 15.7 ug/mL
--- NOTE | 2021-04-25 07:38 | NUR ---
C/o feeling of fullness in her abdomen. States she feels like she can't breathe very well. tachypneic at rest, wheezing noted with activity.
--- NOTE | 2021-04-25 12:29 | NUR ---
0800 to room 305 to dc dialysis, pt c/o feeling very full, abdomen is sl distended and firm. uf is negative 2186, mandual drain of 1950ml and another 700 ml. fluid is clear. pt feeling much better and denies any more discomfort. Message left for Dr Stanton.
--- NOTE | 2021-04-25 15:49 | NUR ---
Pt returned from revascularization from cath lab nurse to PCU2. Pedal pulses are palpable bilaterally. Left groin access site is covered in tegederm and there is no bruising, bleeding, or hematoma. Pt was instructed to keep the leg straight. She was awake and talking at time of return, but now is sleeping, arousable easily to conversation. vital signs are stable. IVfluids restarted, Muñoz cathter is draining yellow urine.
--- NOTE | 2021-04-25 19:22 | NUR ---
TO ROOMU 2 FOR EVENING PD TX. PT SITTING UP IN BED WITH RT AT BEDSIDE. UDN IN PROGRESS. PT STATES THAT SHE FEELS BETTER THAN EARLIER TODAY. PT IS ALERT AND ORIENTED. PT HAD HER REVASCULARIZATION TODAY PER IR. PT OFFERS NO COMPLAINTS. PD STARTED UNDER ASEPTIC PROTOCOL PER MD ORDERS. MARTA
[2021-04-25 20:01] LABS: International Normalized Ratio 1.79; Prothrombin Time Results 18.1 Sec (9.7-11.5)
[2021-04-26 04:02] LABS: Hematocrit 25.4 % (33.0-51.0); Hemoglobin 7.9 g/dL (11.5-16.0)
[2021-04-26 04:27] LABS: Anion Gap 9 mmol/L (6-16); Blood Urea Nitrogen 60 mg/dL (8-24); Bun/Creatinine Ratio 13.9 (12.0-20.0); CO2, Blood 26 mmol/L (21-32); Calcium, Blood 8.8 mg/dL (8.5-10.1); Chloride, Blood 100 mmol/L (98-108); Creatinine, Blood 4.33 mg/dL (0.40-1.00); Glomerular Filtration Rate 10 (60-); Glucose, Blood 213 mg/dL (70-99); Magnesium, Blood 2.1 mg/dL (1.6-2.4); Phosphorus, Blood 3.9 mg/dL (2.5-4.9); Potassium, Blood 3.3 mmol/L (3.5-5.5); Sodium, Blood 135 mmol/L (136-145)
[2021-04-26 04:29] LABS: Vancomycin, Trough 26.4 ug/mL (5.0-10.0)
--- NOTE | 2021-04-26 05:23 | NUR ---
Shift Summary: pt rested off and on throughout shift, t-max 100.3, hr 90-115, bp wnl. afib on monitor, able to verbalize needs, bed in lowest position and call negrete in reach. Critical High Vanco Trough of 26.4, pharmacy notified, hold todays dose of vanco. peritoneal dialysis in progress without complications, pt states she is feeling a bit better this morning. right foot and heel elevated to prevent pressure. jonatan hansen
--- NOTE | 2021-04-26 07:04 | NUR ---
PT RESTING COMFORTABLY, WAKENS EASILY TO ORIENT. OVERNIGHT THERAPY COMPLETE. PT DISCONNECTED AND CAPPED. CATHETER SECURED. CYCLER STRIPPED AND CLEANED. DR CALLE CONSULTED VIA PHONE.
[2021-04-26 09:09] LABS: BASOPHILS ABSOLUTE AUTO 0.08 K/mm3 (0.00-0.23); BASOPHILS PERCENT AUTO 1 % (0-2); EOSINOPHILS PERCENT AUTO 3 % (0-6); Hematocrit 25.4 % (33.0-51.0); IMMATURE GRAN ABSOLUTE AUTO 0.43 K/mm3 (0.00-0.10); IMMATURE GRAN PERCENT AUTO 3 % (0-1); LYMPHOCYTES ABSOLUTE AUTO 1.01 K/mm3 (0.84-5.20); LYMPHOCYTES PERCENT AUTO 6 % (21-46); MONOCYTES ABSOLUTE AUTO 1.44 K/mm3 (0.16-1.47); MONOCYTES PERCENT AUTO 9 % (4-13); Mean Corpuscular HGB 30.3 pg (26.0-34.0); Mean Corpuscular HGB Conc 31.5 g/dL (31.5-36.5); Mean Corpuscular Volume 96 fL (80-100); Mean Platelet Volume 9.9 fL (9.1-12.4); NEUTROPHILS ABSOLUTE AUTO 12.71 K/mm3 (1.96-9.15); NEUTROPHILS PERCENT AUTO 79 % (41-73); Platelet Count 310 K/mm3 (150-400); RDW Coefficient Variation 15.9 % (11.7-14.2); RDW Standard Deviation 55.3 fL (35.1-46.3); Red Blood Cell Count 2.64 M/mm3 (3.80-5.20); White Blood Cell Count 16.17 K/mm3 (4.00-11.30)
--- NOTE | 2021-04-26 18:31 | NUR ---
DIALYSIS-PD PT TRYING TO EAT DINNER. COUGHING. VERY TIRED SHE SAID. VERY PLEASANT. CONNECTED TO PD PER PROTOCOLAMIDE. GAVE MY NUMBER TO [employer] SUPERVISOR.
[2021-04-26 20:02] LABS: International Normalized Ratio 1.94; Prothrombin Time Results 19.5 Sec (9.7-11.5)
[2021-04-27 04:00] LABS: BASOPHILS ABSOLUTE AUTO 0.08 K/mm3 (0.00-0.23); BASOPHILS PERCENT AUTO 1 % (0-2); EOSINOPHILS ABSOLUTE AUTO 0.61 K/mm3 (0.00-0.68); EOSINOPHILS PERCENT AUTO 4 % (0-6); Hematocrit 23.7 % (33.0-51.0); Hemoglobin 7.4 g/dL (11.5-16.0); IMMATURE GRAN ABSOLUTE AUTO 0.38 K/mm3 (0.00-0.10); IMMATURE GRAN PERCENT AUTO 3 % (0-1); LYMPHOCYTES ABSOLUTE AUTO 1.08 K/mm3 (0.84-5.20); LYMPHOCYTES PERCENT AUTO 7 % (21-46); MONOCYTES ABSOLUTE AUTO 1.39 K/mm3 (0.16-1.47); MONOCYTES PERCENT AUTO 9 % (4-13); Mean Corpuscular HGB Conc 31.2 g/dL (31.5-36.5); Mean Corpuscular Volume 96 fL (80-100); Mean Platelet Volume 9.9 fL (9.1-12.4); NEUTROPHILS PERCENT AUTO 76 % (41-73); Platelet Count 322 K/mm3 (150-400); RDW Coefficient Variation 15.6 % (11.7-14.2); RDW Standard Deviation 53.5 fL (35.1-46.3); Red Blood Cell Count 2.47 M/mm3 (3.80-5.20); White Blood Cell Count 14.74 K/mm3 (4.00-11.30)
[2021-04-27 04:28] LABS: Anion Gap 9 mmol/L (6-16); Blood Urea Nitrogen 58 mg/dL (8-24); CO2, Blood 28 mmol/L (21-32); Calcium, Blood 8.7 mg/dL (8.5-10.1); Chloride, Blood 100 mmol/L (98-108); Creatinine, Blood 4.14 mg/dL (0.40-1.00); Glomerular Filtration Rate 10 (60-); Glucose, Blood 262 mg/dL (70-99); Magnesium, Blood 1.9 mg/dL (1.6-2.4); Potassium, Blood 3.4 mmol/L (3.5-5.5); Sodium, Blood 137 mmol/L (136-145); Vancomycin, Random 22.2 ug/mL
--- NOTE | 2021-04-27 05:52 | NUR ---
SHIFT SUMMARY ASSUMED CARE OF PT AT 1900. PT IS A/OX4 BUT VERY ANXIOUS. PT CALLED HER SEVERAL TIMES COMPLAINING THAT SHE NEEDED HIGHER LEVEL OF CARE. PT CALLED NURSES STATION MULTIPLE TIMES ASKING FOR HIS TO BE CHECKED ON. PT WAS FEELING NEASEATED AND VOMITED ONCE. PT WAS AFRAID THE DIALYSIS WAS NOT WORKING RIGHT BECAUSE SHE FELT FULL. REQUESTED THAT PT GET CLUB SODA IN A CAN, NOT FROM THE TAP OR ELSE IT WOULD NOT HELP HER. DIALYSIS NURSE NOTIFIED AND STATED THAT LONG THE MACHINE IS WORKING THEN THERE IS NOT MUCH ELSE TO DO. THIS ANSWER DID NOT SATIFIY AND HE CALLED A DIFFERENT DIALYSIS NURSE NAMED AMRITA. THIS NURSE CALLED AMRITA AND ASKED WHAT SHE SUGGESTED TO DO FOR PT AND SHE AGREED WITH [facility] THAT THERE WAS NOT MUCH TO DO AND BOTH NURSES AGREED THAT PT WAS VERY ANXIOUS. PT WAS MEDICATED WITH ZOFRAN FOR NEASEA AND FELL ASLEEP. PT HAD NO FURTHER COMPLAINTS. PT WAS IN AFIB T/O THE NIGHT. LUNG SOUNDS HAVE SOME CRACKLES AT THE BASES, PT ON 2L NC. PT WAS CONTIENT T/O THE NIGHT. PT PERIPHERAL PULSES WERE WEAK. PT DRESSING HAS A SMALL AMOUNT OF DRAINAGE ON THE HEAL. PT L ACCESS SITE IS SOFT WITH MINIMAL DRAINAGE. CALL LIGHT IN REACH, BED IN LOWEST POSITON.
--- NOTE | 2021-04-27 06:41 | NUR ---
AWAKE , RESTING IN BED. CCPD COMPLETE. REPORT OF INDIGESTION DURING NIGHT. 182 NET UF NOTED. PT DISCONNECTED AND CAPPED. CYCLER STRIPPED AND CLEANED. DR CALLE CONSULTED.
[2021-04-27 10:59] LABS: International Normalized Ratio 1.81; Prothrombin Time Results 18.3 Sec (9.7-11.5)
--- NOTE | 2021-04-27 18:07 | NUR ---
PATIENT DONE WITH DINNER. RESTING IN BED AND COMFORTABLE WATCHING TV. PT AESEPTICALLY CONNECTED AND OVERNIGHT THERAPY STARTED. WHILE MONITORING PATIENT DURING INITIAL DRAIN AND FILL#1 EXIT SITE CARE PERFORMED AND NEW STERILE DRESSING APPLIED. MED FLOOR STAFF AWARE OF OVERNIGHT CCPD IN PROGRESS.
[2021-04-27 20:14] LABS: International Normalized Ratio 1.84; Prothrombin Time Results 18.6 Sec (9.7-11.5)
[2021-04-28 04:10] LABS: BASOPHILS ABSOLUTE AUTO 0.09 K/mm3 (0.00-0.23); BASOPHILS PERCENT AUTO 1 % (0-2); EOSINOPHILS ABSOLUTE AUTO 0.87 K/mm3 (0.00-0.68); EOSINOPHILS PERCENT AUTO 6 % (0-6); Hemoglobin 7.1 g/dL (11.5-16.0); IMMATURE GRAN ABSOLUTE AUTO 0.57 K/mm3 (0.00-0.10); IMMATURE GRAN PERCENT AUTO 4 % (0-1); LYMPHOCYTES ABSOLUTE AUTO 1.25 K/mm3 (0.84-5.20); LYMPHOCYTES PERCENT AUTO 9 % (21-46); MONOCYTES ABSOLUTE AUTO 1.46 K/mm3 (0.16-1.47); MONOCYTES PERCENT AUTO 11 % (4-13); Mean Corpuscular HGB 29.8 pg (26.0-34.0); Mean Corpuscular HGB Conc 30.9 g/dL (31.5-36.5); Mean Corpuscular Volume 97 fL (80-100); NEUTROPHILS ABSOLUTE AUTO 9.71 K/mm3 (1.96-9.15); NEUTROPHILS PERCENT AUTO 70 % (41-73); Platelet Count 315 K/mm3 (150-400); RDW Coefficient Variation 15.7 % (11.7-14.2); RDW Standard Deviation 54.6 fL (35.1-46.3); Red Blood Cell Count 2.38 M/mm3 (3.80-5.20); White Blood Cell Count 13.95 K/mm3 (4.00-11.30)
[2021-04-28 04:30] LABS: Albumin, Blood 1.9 g/dL (3.4-5.0); Anion Gap 7 mmol/L (6-16); Blood Urea Nitrogen 58 mg/dL (8-24); Bun/Creatinine Ratio 13.5 (12.0-20.0); CO2, Blood 29 mmol/L (21-32); Calcium, Blood 9.8 mg/dL (8.5-10.1); Chloride, Blood 101 mmol/L (98-108); Creatinine, Blood 4.29 mg/dL (0.40-1.00); Glomerular Filtration Rate 10 (60-); Glucose, Blood 252 mg/dL (70-99); Magnesium, Blood 1.8 mg/dL (1.6-2.4); Phosphorus, Blood 4.3 mg/dL (2.5-4.9); Potassium, Blood 3.6 mmol/L (3.5-5.5); Sodium, Blood 137 mmol/L (136-145); Vancomycin, Random 19.3 ug/mL
--- NOTE | 2021-04-28 06:11 | NUR ---
SHIFT SUMMARY PT A/OX4. CALLS APPROPRIATELY. ON TELE AFIB T/O THE NIGHT. ON PD T/O THE NIGHT WHICH MAKES PT EXTREMELY ANXIOUS. PT COULDN'T SLEEP MOST OF THE NIGHT AND WAS GIVEN ONE DOSE OF ATIVAN FOR ANXIOUSNESS/AGIT. AND WAS ABLE TO FINALLY GET SOME REST THIS MORNING. DIANN WAS CALLED THIS MORNING THAT THE PD MACHINE READ "END OF THERAPY" AND STATED SOMEONE WILL COME AROUND 6-7AM TO TAKE PT OFF MACHINE. VSS. PT BUE RADIAL PULSES AND BLE PHERIPHERAL PULSES VERY WEAK. HAS A CONSULT PENDING THIS MORNING WITH PODIATRY FOR R. LOWER FOOT; PT AWARE. RLE DRESSING HAS SOME DRAINAGE AND FOOT COVERED WITH DRESSING. LEFT GROIN SITE ACCESS SITE HAS AN UNCHANGED IN CONDITION DRESSING WITH SMALL DRAINAGE. MERCADO CATH IN PLACE DRAINING YELLOW/RITA COLOR URINE. PT DENIED ANY TYPE OF PAIN. TRIED TO REPOSITION BUT REMAINED A LITTLE UNCOMFORTABLE WITH THE PD. BED IN LOWEST POSITION, BED ALARM ON, AND CALL LIGHT W/I REACH. WILL CONT. WITH PLAN OF CARE.
--- NOTE | 2021-04-28 07:03 | NUR ---
PT RESTING QUIETLY BUT WAKENS EASILY. VERBALIZES COMFORT AT THIS TIME. OVERNIGHT CCPD COMPLETE. PT DISCONNECTED AND CAPPED. CATHETER SECURED IN PT'S PD BELT. CYCLER STRIPPED AND CLEANED. DR CALLE CONSULTED VIA PHONE.
--- NOTE | 2021-04-28 14:21 | NUR ---
NO S/S OF INFECTON NOTED OR OBSERVED AT RIGHT FOOT, DRESSING CHANGED. POSITIVE PEDAL PULSE, WARM TO TOUCH. BASELINE OBSERVATION. SEEN BY WIRELESS OPERATOR. VISITING.
--- NOTE | 2021-04-28 18:39 | NUR ---
PT RESTING QUIETLY AND COMFORTABLY IN BED THIS EVENING. DINNER COMPLETE. SPOUSE HAS LEFT FOR HOME. CYCLER STRUNG PRIMED AND PROGRAMMED PER DR CALLE'S RX. PT CONNECTED AND THERAPY STARTED. CATHETER SECURED IN PT'S PD BELT. EXIT SITE CARE DONE. PT COMFORTABLE THROUGH INITIAL DRAIN AND FILL #1.
[2021-04-29 03:41] LABS: BASOPHILS PERCENT AUTO 1 % (0-2); EOSINOPHILS ABSOLUTE AUTO 0.63 K/mm3 (0.00-0.68); EOSINOPHILS PERCENT AUTO 5 % (0-6); Hematocrit 23.8 % (33.0-51.0); Hemoglobin 7.4 g/dL (11.5-16.0); IMMATURE GRAN ABSOLUTE AUTO 0.59 K/mm3 (0.00-0.10); IMMATURE GRAN PERCENT AUTO 4 % (0-1); LYMPHOCYTES ABSOLUTE AUTO 1.42 K/mm3 (0.84-5.20); LYMPHOCYTES PERCENT AUTO 10 % (21-46); MONOCYTES ABSOLUTE AUTO 1.37 K/mm3 (0.16-1.47); MONOCYTES PERCENT AUTO 10 % (4-13); Mean Corpuscular HGB 30.3 pg (26.0-34.0); Mean Corpuscular HGB Conc 31.1 g/dL (31.5-36.5); Mean Corpuscular Volume 98 fL (80-100); Mean Platelet Volume 9.9 fL (9.1-12.4); NEUTROPHILS ABSOLUTE AUTO 9.85 K/mm3 (1.96-9.15); NEUTROPHILS PERCENT AUTO 71 % (41-73); Platelet Count 343 K/mm3 (150-400); RDW Coefficient Variation 15.5 % (11.7-14.2); Red Blood Cell Count 2.44 M/mm3 (3.80-5.20); White Blood Cell Count 13.96 K/mm3 (4.00-11.30)
[2021-04-29 04:01] LABS: Albumin, Blood 1.9 g/dL (3.4-5.0); Anion Gap 8 mmol/L (6-16); Blood Urea Nitrogen 52 mg/dL (8-24); CO2, Blood 31 mmol/L (21-32); Calcium, Blood 10.2 mg/dL (8.5-10.1); Chloride, Blood 101 mmol/L (98-108); Creatinine, Blood 4.01 mg/dL (0.40-1.00); Glomerular Filtration Rate 11 (60-); Glucose, Blood 260 mg/dL (70-99); Magnesium, Blood 2.1 mg/dL (1.6-2.4); Phosphorus, Blood 4.1 mg/dL (2.5-4.9); Potassium, Blood 3.6 mmol/L (3.5-5.5); Sodium, Blood 140 mmol/L (136-145); Vancomycin, Random 25.1 ug/mL
--- NOTE | 2021-04-29 05:50 | NUR ---
SHIFT ASSESSMENT PT A/OX3 AND FORGETFUL AT TIMES. ON TELE AFIB IN THE 90'S-120'S. WAS IN THE 120'S WHEN USING THE BEDSIDE COMMODE MEDICATED ONCE PER EMAR/ORDERS FOR ELEVATED HR. CAN BE CONT. AND INCONT. OF BM; 2 BM DURING THE NIGHT. GOOD PO INTAKE. HAD PERITONEAL DIALYSIS T/O THE NIGHT. VSS REMAINED STABLE. HAS MERCADO DRAINING TO GRAVITY WITH GOOD URINE OUTPUT; YELLOW CLEAR IN COLOR. DENIED PAIN. HAS DRESSING ON R. FOOT COVERED AND FOAM IN PLACE FOR HEAL AND L.L.E. SKIN TEAR. DRESSING L. ACCESS SITE REMAINS UNCHANGED WITH DRAINAGE PRESENT. ON HEPARIN DRIP PER ORDERS. NO ACUTE CHANGES T/O THE NIGHT. WILL CONT. WITH PLAN OF CARE.
--- NOTE | 2021-04-29 06:44 | NUR ---
PT RESTING COMFORTABLY IN BED. OVERNIGHT CCPD COMPLETE. PT DISCONNECTED AND CAPPED. CYCLER STRIPPED AND CLEANED. DR CALLE CONSULTED VIA PHONE.
--- NOTE | 2021-04-29 11:11 | NUR ---
UPDATE PT BLOOD GLUCOSE IS 60. CONTACTED DR CASH TO INFORM HER THAT THE PT IS NPO AWIATING A PROCEDURE. DR CASH ORDERED 1 AMP D50.
--- NOTE | 2021-04-29 15:00 | NUR ---
UPDATE PT TAKEN TO DAY SURGERY. WILL AWAIT RETURN
--- NOTE | 2021-04-29 15:41 | NUR ---
Met pt. in bed and her nurse getting her ready for suggery prayed for p[. and anounted her.
--- NOTE | 2021-04-29 19:36 | NUR ---
DIALYSIS-PD PT STILL IN RECOVERY. WENT DOWN CHECKED ON HER. THEY BROUGHT HER TO THE ROOM. HER WAS THERE TO SEE HOW SHE WAS DOING. PT QUIET. SAID SHE WAS FINE. HELPED ME EXPLAIN THE PD TO THE SURG FLOOR RN. HE SEEMED TO ENJOY DOING THAT. CONNECTED HER TO THE PD TX WITHOUT DIFFICULTY PER PROTOCAL. WENT THROUGH INITIAL DRAIN WITH OUT AN ALARM. DWELL TIME DECREASED PER DR CALLE'S ORDERS.
[2021-04-30 04:40] LABS: Hematocrit 24.7 % (33.0-51.0); Hemoglobin 7.5 g/dL (11.5-16.0)
[2021-04-30 05:15] LABS: Albumin, Blood 1.9 g/dL (3.4-5.0); Anion Gap 5 mmol/L (6-16); Blood Urea Nitrogen 49 mg/dL (8-24); Bun/Creatinine Ratio 12.1 (12.0-20.0); CO2, Blood 33 mmol/L (21-32); Calcium, Blood 9.8 mg/dL (8.5-10.1); Chloride, Blood 101 mmol/L (98-108); Creatinine, Blood 4.06 mg/dL (0.40-1.00); Glomerular Filtration Rate 11 (60-); Glucose, Blood 279 mg/dL (70-99); Phosphorus, Blood 3.9 mg/dL (2.5-4.9); Potassium, Blood 3.5 mmol/L (3.5-5.5); Sodium, Blood 139 mmol/L (136-145); Vancomycin, Random 22.9 ug/mL
--- NOTE | 2021-04-30 05:27 | NUR ---
PER PHARMACY, HEPARIN DRIP DOSE ADJUSTED TO: 12.5 UNITS/HR 16.5ML/HR
--- NOTE | 2021-04-30 05:53 | NUR ---
PT IS A/OX2-3, FORGETFUL AND CONFUSED AT TIMES. PER HER SPOUSE, CONFUSION IS BASELINE FOR PT. ABLE TO MAKE HER NEEDS KNOWN. 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 DRSG TO FOOT IS CDI. FOOT IN POTTS BOOT FOR PROTECTION. NWB TO RLE X24 HOURS. TELE: AFIB. OXYGEN AT 2L PER NC, COARSE/CRACKLES. HEPARIN DRIPRUNNING, RATE RECENTLY DECREASED FROM 13U/HR (17.2ML/HR) TO 12.5U/HR (16.5ML/HR). RECEIVING PERITONEAL DIALYSIS DURING NIGHT. NO PROBLEMS WITH PD.
--- NOTE | 2021-04-30 08:36 | NUR ---
AWAKE / ALERT / SITTING UP IN BED EATING BREAKFAST. OVERNIGHT CCPD COMPLETE. PT AESEPTICALLY DISCONNECTED AND CAPPED. CYCLER STRIPPED AND CLEANED. DR CALLE CONSULTED VIA PHONE.
--- NOTE | 2021-04-30 09:15 | NUR ---
DR. CASH ROUNDED ON PT THIS AM. DISCUSSED LOW BP WITH DR. CASH AND ORDER RECEIVED TO HOLD METOPROLOL BUT TO CONTINUE WITH DEMADEX. DR. CASH ALSO NOTIFIED THAT PT TOOK HER OWN THC GUMMIES DURING THE NIGHT PER REPORT FROM NOC RN JAMIR CLARK.
--- NOTE | 2021-04-30 14:39 | NUR ---
PT'S IS VISITING AT THIS TIME. HE WAS EDUCATED TO NOT PROVIDE ANY FURTHER THC GUMMIES TO THE PT DURING HER HOSPITAL STAY. ALSO DISCUSSED POSSIBLE NEED FOR SNF. WILL CONTINUE TO MONITOR.
--- NOTE | 2021-04-30 15:53 | NUR ---
DISCUSSED R GREAT TOE AND QUESTIONS REGARDING DRESSING CHANGE WITH DR. ROBLERO AND DR. CASH. DR. ORBLERO STATED TO LEAVE DRESSING IN PLACE. HE STATED AWARE THAT SKIN TO R GREAT TOE APPEARS ABNORMAL. DR. CASH ALSO STATED SHE IS AWARE. DR. CASH NOTIFED OF ADJUSTMENTS MADE TO HEP GTT PER PHARMACY. NOTIFIED OF CONTINUED ASYMPTOMATIC LOW BP. PLAN TO REMOVE MERCADO CATH.
[2021-04-30 16:10] LABS: BASOPHILS PERCENT AUTO 1 % (0-2); EOSINOPHILS ABSOLUTE AUTO 0.77 K/mm3 (0.00-0.68); EOSINOPHILS PERCENT AUTO 5 % (0-6); Hematocrit 25.4 % (33.0-51.0); Hemoglobin 7.7 g/dL (11.5-16.0); IMMATURE GRAN ABSOLUTE AUTO 0.71 K/mm3 (0.00-0.10); IMMATURE GRAN PERCENT AUTO 4 % (0-1); LYMPHOCYTES ABSOLUTE AUTO 2.06 K/mm3 (0.84-5.20); LYMPHOCYTES PERCENT AUTO 12 % (21-46); MONOCYTES ABSOLUTE AUTO 1.64 K/mm3 (0.16-1.47); MONOCYTES PERCENT AUTO 10 % (4-13); Mean Corpuscular HGB 30.6 pg (26.0-34.0); Mean Corpuscular HGB Conc 30.3 g/dL (31.5-36.5); Mean Corpuscular Volume 101 fL (80-100); NEUTROPHILS ABSOLUTE AUTO 11.32 K/mm3 (1.96-9.15); NEUTROPHILS PERCENT AUTO 68 % (41-73); Platelet Count 378 K/mm3 (150-400); RDW Coefficient Variation 15.6 % (11.7-14.2); RDW Standard Deviation 56.9 fL (35.1-46.3); Red Blood Cell Count 2.52 M/mm3 (3.80-5.20)
--- NOTE | 2021-04-30 17:11 | NUR ---
MERCADO CATHETER REMOVED AT APPROXIMATELY 1630. PT TOLERATED WELL. WILL MONITOR FOR VOID.
[2021-04-30 18:28] LABS: International Normalized Ratio 1.65; Prothrombin Time Results 16.8 Sec (9.7-11.5)
--- NOTE | 2021-04-30 18:46 | NUR ---
SHIFT SUMMARY PAIN HAS BEEN MANAGED WITH PO PAIN MEDICATION TODAY. PT WAS ABLE TO GET OOB WITH OCCUPATIONAL AND PHYSICAL THERAPY HOWEVER SHE HAS DIFFICULTY MAINTIANING WEIGHTBEARING STATUS EVEN WITH ASSISTANCE AND COACHING. PT HAS HAD DECREASED APPETITE THIS SHIFT. PT'S AT THE BEDSIDE FOR SUPPORT THIS AFTERNOON. DRESSING REMAINS IN PLACE, PLAN FOR DR. ROBLERO TO ROUND TOMORROW. MERCADO CATH OUT THIS AFTERNOON AND PT HAS VOIDED. VSS. WILL REPORT TO DACIA SPAULDING.
--- NOTE | 2021-04-30 19:10 | NUR ---
DIALYSIS - PD PT'S LEFT NOT LONG AGO. PT ANTIPATES NOT SLEEPING WELL TONIGHT. SHE SEEMS ANXIOUS. SHE SAYS SHE HAS HAD PANIC ATTACKS. SITE CLEAR. CONNECTED WITHOUT DIFFICULTY.
[2021-05-01 04:29] LABS: Hematocrit 26.6 % (33.0-51.0); Hemoglobin 7.9 g/dL (11.5-16.0)
[2021-05-01 04:42] LABS: International Normalized Ratio 1.67
[2021-05-01 04:52] LABS: Anion Gap 8 mmol/L (6-16); Blood Urea Nitrogen 47 mg/dL (8-24); Bun/Creatinine Ratio 11.1 (12.0-20.0); CO2, Blood 32 mmol/L (21-32); Calcium, Blood 9.9 mg/dL (8.5-10.1); Chloride, Blood 98 mmol/L (98-108); Creatinine, Blood 4.25 mg/dL (0.40-1.00); Glomerular Filtration Rate 10 (60-); Glucose, Blood 285 mg/dL (70-99); Magnesium, Blood 2.1 mg/dL (1.6-2.4); Phosphorus, Blood 3.5 mg/dL (2.5-4.9); Potassium, Blood 3.5 mmol/L (3.5-5.5); Sodium, Blood 138 mmol/L (136-145); Vancomycin, Random 20.3 ug/mL
--- NOTE | 2021-05-01 08:07 | NUR ---
DIALYSIS-PD PT SLEEPING, AROUSES JIMI AMD GO BACK TO SLEEP. ID [id number], UF [phone] ML. CLEAR SOLUTION. NO ALARMS. STAFF SAID SHE WAS ANXIOUS DURING THE NIGHT.
--- NOTE | 2021-05-01 14:40 | NUR ---
SHIFT SUMMARY: POD 2 RIGHT SECOND TOE AMPUTATION PATIENT IS ALERT AND ORIENTED X2-3 DURING DAYSHIFT. ACCORDING TO NIGHTSHIFT SHE BECOMES MORE ANXIOUS AND CONFUSED. HER RIGHT FOOT HAS AN MATTI WRAP WITH GAUZE THAT IS C/D/I. SHE HAS A PLUSH BOOTY ON THE RIGHT FOOT WITH PILLOW TO ELEVATE THE FOOT. SHE HAS WORKED WITH PT/OT TODAY. SHE IS A STAND PIVOT TO BEDSIDE COMMODE. CALL LIGHT WITHIN REACH. AT BEDSIDE. THE PLAN IS TO GO HOME TOMORROW WITH HOME HEALTH.
--- NOTE | 2021-05-01 19:39 | NUR ---
DIALYSIS-PD PT SLEEPING, WHICH IS UNUSAL. CLEANED AND DRESSED HER SITE. CONNECTED HER AT 1900 TO 1-1.5% 6L DIANEAL AND 1 6L 2.5% DIANEAL WITH HEPARIN. PT AROUSES EASLY AND IS A&O. SHE NORMALLY DOES NOT SLEEP WELL. TOLD ME USUALLY 4 HOURS A NIGHT
[2021-05-02 02:12] LABS: Hematocrit 25.5 % (33.0-51.0); Hemoglobin 7.9 g/dL (11.5-16.0)
[2021-05-02 02:28] LABS: International Normalized Ratio 2.3; Prothrombin Time Results 22.9 Sec (9.7-11.5)
[2021-05-02 02:30] LABS: Albumin, Blood 2.1 g/dL (3.4-5.0); Anion Gap 9 mmol/L (6-16); Blood Urea Nitrogen 49 mg/dL (8-24); Bun/Creatinine Ratio 10.6 (12.0-20.0); CO2, Blood 30 mmol/L (21-32); Calcium, Blood 10.1 mg/dL (8.5-10.1); Chloride, Blood 98 mmol/L (98-108); Creatinine, Blood 4.62 mg/dL (0.40-1.00); Glomerular Filtration Rate 9 (60-); Glucose, Blood 246 mg/dL (70-99); Magnesium, Blood 1.7 mg/dL (1.6-2.4); Phosphorus, Blood 3.5 mg/dL (2.5-4.9); Potassium, Blood 3.8 mmol/L (3.5-5.5); Sodium, Blood 137 mmol/L (136-145); Vancomycin, Random 18.4 ug/mL
--- NOTE | 2021-05-02 06:43 | NUR ---
PATIENT RESTING QUIETLY AND COMFORTABLY THIS AM UPON ENTERING ROOM. CCPD THERPY COMPLETE. PT DISCONNECTED AND CAPPED. CYCLER STRIPPED AND CLEANED. DR CALLE CONSULTED VIA PHONE FOR NEW ORDERS / PLAN OF CARE.
[2021-05-02] MEDS ORDERED: CEFD300 PO (11:29)
--- NOTE | 2021-05-02 12:39 | NUR ---
DISCHARGE SUMMARY R FOOT DRESSING C/D/I, SOFT BOOT IN PLACE. IV'S TAKEN OUT, WITHIN NORMAL LIMITS. VERBAL AND WRITTEN DISCHARGE INSTRUCTIONS GONE OVER WITH PT AND PT SPOUSE. PT LUNGS CLEAR AND DIMINISHED IN BASES BILATERALLY. BELONGINGS TAKEN WITH PT. PT WHEELED OUT IN WHEELCHAIR.
== END 2021-05-02 12:30 | disposition home health service (06) | DRG 853 ==
LOC: ER 10:57 → PCU 18:16 → SURS 18:16 → MEDS 18:16 → ICUW 18:16 → PCU 23:31 → SURS 04-29 17:19
PROVIDERS: Family Medicine; Internal Medicine; Internal Medicine Nephrology; Pharmacist; Physician Assistant; Podiatrist Foot & Ankle Surgery; Student in an Organized Health Care Education/Training Program; ADMIT Internal Medicine
PROC: 30233N1 Transfusion of Nonautologous Red Blood Cells into Peripheral Vein, Percutaneous Approach (ICD-10-PCS; 2021-04-23)
PROC: 0Y6R0Z3 Detachment at Right 2nd Toe, Low, Open Approach (ICD-10-PCS; 2021-04-29)
PROC: 047K3Z1 Dilation of Right Femoral Artery using Drug-Coated Balloon, Percutaneous Approach (ICD-10-PCS; principal; 2021-04-30)
PROC: 047M3Z1 Dilation of Right Popliteal Artery using Drug-Coated Balloon, Percutaneous Approach (ICD-10-PCS; 2021-04-30)
PROC: 04CK3ZZ Extirpation of Matter from Right Femoral Artery, Percutaneous Approach (ICD-10-PCS; 2021-04-30)
PROC: 04CM3ZZ Extirpation of Matter from Right Popliteal Artery, Percutaneous Approach (ICD-10-PCS; 2021-04-30)
PROC: 047P3Z1 Dilation of Right Anterior Tibial Artery using Drug-Coated Balloon, Percutaneous Approach (ICD-10-PCS; 2021-04-30)
DX: A41.9 Sepsis, unspecified organism (principal); N18.6 End stage renal disease; G93.41 Metabolic encephalopathy; J18.9 Pneumonia, unspecified organism; I13.2 Hypertensive heart and chronic kidney disease with heart failure and with stage 5 chronic kidney disease, or end stage renal disease; E87.1 Hypo-osmolality and hyponatremia; I96 Gangrene, not elsewhere classified; E11.52 Type 2 diabetes mellitus with diabetic peripheral angiopathy with gangrene; I50.32 Chronic diastolic (congestive) heart failure; N39.0 Urinary tract infection, site not specified; L03.115 Cellulitis of right lower limb; E11.22 Type 2 diabetes mellitus with diabetic chronic kidney disease; E11.69 Type 2 diabetes mellitus with other specified complication; D63.1 Anemia in chronic kidney disease; E87.6 Hypokalemia; E83.39 Other disorders of phosphorus metabolism; Z20.822 Contact with and (suspected) exposure to COVID-19; E05.90 Thyrotoxicosis, unspecified without thyrotoxic crisis or storm; I48.91 Unspecified atrial fibrillation; J44.9 Chronic obstructive pulmonary disease, unspecified; R65.20 Severe sepsis without septic shock; I27.20 Pulmonary hypertension, unspecified; R79.1 Abnormal coagulation profile; Z99.2 Dependence on renal dialysis; Z88.1 Allergy status to other antibiotic agents; Z88.5 Allergy status to narcotic agent; Z88.8 Allergy status to other drugs, medicaments and biological substances; Z79.01 Long term (current) use of anticoagulants; Z94.9 Transplanted organ and tissue status, unspecified; Z95.1 Presence of aortocoronary bypass graft; Z98.890 Other specified postprocedural states; Z79.82 Long term (current) use of aspirin; Z79.84 Long term (current) use of oral hypoglycemic drugs; Z79.899 Other long term (current) drug therapy
CPT/HCPCS: 36415; 36430; 37225; 37228; 71045; 73620; 73650; 75625; 75716; 75774; 76937; 80053; 80069; 80202; 81001; 82947; 83605; 83735; 85014; 85018; 85025; 85347; 85610; 85651; 85730; 86141; 86850; 86870; 86900; 86901; 86902; 86920; 87040; 87070; 87075; 87086; 87205; 88305; 88311; 89051; 93005; 93010; 93926; 94640; 94760; 94762; 96365; 96366; 96367; 96375; 97110; 97116; 97162; 97166; 97530; 97535; 99152; 99153; 99285-25; A9270; C1714; C1725; C1760; C1769; C1887; C1894; C2623; J0692; J0696; J0881; J1644; J2001; J2060; J2250; J2370; J2405; J2704; J3010; J3370; J3480; J7030; J7040; J7050; P9016; P9059; Q9967; U0004

== ENCOUNTER 2021-05-16 01:41 | Day surgery (SDC) | payer MEDICARE ==
[~2021-05-16 01:41] MED LIST changes: +CEFD300 PO; +SYNTHROID125 MC1 PO
== END 2021-05-16 23:15 | disposition home or self-care (01) ==
LOC: WOUND 01:41
DX: I96 Gangrene, not elsewhere classified (principal); I70.229 Atherosclerosis of native arteries of extremities with rest pain, unspecified extremity; I87.2 Venous insufficiency (chronic) (peripheral); Z89.421 Acquired absence of other right toe(s); E11.621 Type 2 diabetes mellitus with foot ulcer; Z98.890 Other specified postprocedural states
CPT/HCPCS: A9270; G0463

== ENCOUNTER 2021-05-24 05:33 | Day surgery (SDC) | payer MEDICARE | END 2021-05-24 23:39 | disposition home or self-care (01) | LOC: WOUND 05:33 | DX: E11.621 Type 2 diabetes mellitus with foot ulcer (principal); L97.512 Non-pressure chronic ulcer of other part of right foot with fat layer exposed; I96 Gangrene, not elsewhere classified; E11.51 Type 2 diabetes mellitus with diabetic peripheral angiopathy without gangrene; I70.229 Atherosclerosis of native arteries of extremities with rest pain, unspecified extremity; Z98.890 Other specified postprocedural states; I87.2 Venous insufficiency (chronic) (peripheral); Z89.421 Acquired absence of other right toe(s) | CPT/HCPCS: A9270 ==

== ENCOUNTER 2021-05-27 17:02 | Emergency (ER) | payer MEDICARE ==
[~2021-05-27] VITALS: Ht 165.1 cm; Wt 63.0 kg
== END 2021-05-27 18:50 | disposition home or self-care (01) ==
LOC: ER 17:02
DX: I48.91 Unspecified atrial fibrillation (principal); D68.59 Other primary thrombophilia; E11.40 Type 2 diabetes mellitus with diabetic neuropathy, unspecified; J44.9 Chronic obstructive pulmonary disease, unspecified; K21.9 Gastro-esophageal reflux disease without esophagitis; I50.9 Heart failure, unspecified; E78.5 Hyperlipidemia, unspecified; E03.9 Hypothyroidism, unspecified; Z88.5 Allergy status to narcotic agent; Z88.8 Allergy status to other drugs, medicaments and biological substances; Z79.01 Long term (current) use of anticoagulants; Z79.899 Other long term (current) drug therapy; Z79.82 Long term (current) use of aspirin; N18.9 Chronic kidney disease, unspecified
CPT/HCPCS: 96372; 99282; J3430

== ENCOUNTER 2021-05-31 04:35 | Day surgery (SDC) | payer MEDICARE | END 2021-05-31 23:41 | disposition home or self-care (01) | LOC: WOUND 04:35 | DX: E11.621 Type 2 diabetes mellitus with foot ulcer (principal); L97.512 Non-pressure chronic ulcer of other part of right foot with fat layer exposed; E11.51 Type 2 diabetes mellitus with diabetic peripheral angiopathy without gangrene; I70.229 Atherosclerosis of native arteries of extremities with rest pain, unspecified extremity; E11.52 Type 2 diabetes mellitus with diabetic peripheral angiopathy with gangrene; I96 Gangrene, not elsewhere classified; I87.2 Venous insufficiency (chronic) (peripheral); Z89.421 Acquired absence of other right toe(s); Z98.890 Other specified postprocedural states | CPT/HCPCS: A9270 ==

== ENCOUNTER 2021-06-07 08:00 | Day surgery (SDC) | payer MEDICARE | END 2021-06-07 23:59 | disposition home or self-care (01) | LOC: WOUND 08:00 | DX: E11.621 Type 2 diabetes mellitus with foot ulcer (principal); L97.512 Non-pressure chronic ulcer of other part of right foot with fat layer exposed; L97.519 Non-pressure chronic ulcer of other part of right foot with unspecified severity; E11.52 Type 2 diabetes mellitus with diabetic peripheral angiopathy with gangrene; I96 Gangrene, not elsewhere classified; E11.51 Type 2 diabetes mellitus with diabetic peripheral angiopathy without gangrene; I70.229 Atherosclerosis of native arteries of extremities with rest pain, unspecified extremity; I87.2 Venous insufficiency (chronic) (peripheral); Z98.890 Other specified postprocedural states; Z89.421 Acquired absence of other right toe(s) | CPT/HCPCS: A9270 ==

== ENCOUNTER 2021-06-12 05:15 | Day surgery (SDC) | payer MEDICARE ==
[2021-07-12] MEDS ORDERED: ATROPINE SULFATE2 M1 SL (11:35)
[2021-07-12] MEDS ORDERED: FENTANYL1 EA12 TOP (11:35)
[2021-07-12] MEDS ORDERED: MORP20L SL (11:38)
[2021-07-12] MEDS ORDERED: TRANSDERM-SCOP1 EAC1 TD (11:39)
[2021-07-12] MEDS ORDERED: LORA2L PO (11:40)
== END 2021-06-12 23:44 | disposition home or self-care (01) ==
LOC: WOUND 05:15
DX: E11.52 Type 2 diabetes mellitus with diabetic peripheral angiopathy with gangrene (principal); I96 Gangrene, not elsewhere classified; E11.51 Type 2 diabetes mellitus with diabetic peripheral angiopathy without gangrene; I70.229 Atherosclerosis of native arteries of extremities with rest pain, unspecified extremity; Z98.890 Other specified postprocedural states; I87.2 Venous insufficiency (chronic) (peripheral); E11.621 Type 2 diabetes mellitus with foot ulcer; Z89.421 Acquired absence of other right toe(s)
CPT/HCPCS: G0463

== ENCOUNTER 2021-06-21 01:38 | Day surgery (SDC) | payer MEDICARE | END 2021-06-21 12:00 | disposition home or self-care (01) | LOC: WOUND 01:38 | DX: E11.621 Type 2 diabetes mellitus with foot ulcer (principal); L97.512 Non-pressure chronic ulcer of other part of right foot with fat layer exposed; L97.519 Non-pressure chronic ulcer of other part of right foot with unspecified severity; I70.229 Atherosclerosis of native arteries of extremities with rest pain, unspecified extremity; I87.2 Venous insufficiency (chronic) (peripheral); Z89.421 Acquired absence of other right toe(s); I96 Gangrene, not elsewhere classified | CPT/HCPCS: A9270 ==

== ENCOUNTER 2021-06-26 00:11 | Day surgery (SDC) | payer MEDICARE | END 2021-06-26 18:35 | disposition home or self-care (01) | LOC: ATC 00:11 | DX: D50.8 Other iron deficiency anemias (principal); N18.4 Chronic kidney disease, stage 4 (severe); E11.22 Type 2 diabetes mellitus with diabetic chronic kidney disease; Z99.2 Dependence on renal dialysis; G64 Other disorders of peripheral nervous system; I48.0 Paroxysmal atrial fibrillation; E11.40 Type 2 diabetes mellitus with diabetic neuropathy, unspecified; E11.21 Type 2 diabetes mellitus with diabetic nephropathy; I25.10 Atherosclerotic heart disease of native coronary artery without angina pectoris | CPT/HCPCS: 36415; 36430; 86850; 86870; 86900; 86901; 86902; 86922; 96374; J1940; J7050; P9016 ==

== ENCOUNTER 2021-06-26 11:48 | Day surgery (SDC) | payer MEDICARE | END 2021-06-26 23:28 | disposition home or self-care (01) | LOC: WOUND 11:48 | DX: E11.52 Type 2 diabetes mellitus with diabetic peripheral angiopathy with gangrene (principal); I96 Gangrene, not elsewhere classified; I70.229 Atherosclerosis of native arteries of extremities with rest pain, unspecified extremity; Z98.890 Other specified postprocedural states; I87.2 Venous insufficiency (chronic) (peripheral); E11.51 Type 2 diabetes mellitus with diabetic peripheral angiopathy without gangrene; E11.621 Type 2 diabetes mellitus with foot ulcer; Z89.421 Acquired absence of other right toe(s) | CPT/HCPCS: G0463 ==

== ENCOUNTER 2021-06-28 03:02 | Day surgery (SDC) | payer MEDICARE ==
[2021-06-28] MEDS ORDERED: METOCLOPRAMIDE H PO (15:25)
[2021-06-28] MEDS ORDERED: PANTOPRAZOLE SO40 M2 PO (15:25)
[2021-06-28] MEDS ORDERED: ELIQUIS2.5 MG PO (16:48)
== END 2021-06-28 23:25 | disposition home or self-care (01) ==
LOC: WOUND 03:02
DX: I96 Gangrene, not elsewhere classified (principal); I70.229 Atherosclerosis of native arteries of extremities with rest pain, unspecified extremity; Z98.890 Other specified postprocedural states; I87.2 Venous insufficiency (chronic) (peripheral); E11.621 Type 2 diabetes mellitus with foot ulcer; Z89.421 Acquired absence of other right toe(s)
CPT/HCPCS: G0463